=== PATIENT | male | born 1960 | race Caucasian/White ===

== ENCOUNTER → 2022-11-22 | Outpatient (CLI) | payer OTHER, SELFPAY ==
--- NOTE | 2022-11-22 07:47 | CT_ITS ---
PROCEDURE: CT RIGHT KNEE WITHOUT CONTRAST REASON FOR EXAM: Male, 62 years old. Preoperative planning for the M[employer] Robotic knee surgery. Knee pain. TECHNIQUE: Transaxial CT of the hip, knee and ankle were obtained. Coronal and sagittal reconstruction images of the knee were provided. Individualized dose optimization techniques were used for this CT. COMPARISON: None. FINDINGS: Standard protocol for the preoperative planning for the Mako[employer] robotic knee surgery was performed. There is mild osteoarthrosis of the hip, knee and tibiotalar joint. CT/Extremity Lower without Contra IMPRESSION: Preoperative M[employer] Robotic knee surgical CT evaluation with findings as described above. Electronically Signed: Van Lawson, at 10:40 EDT ,
== END | disposition home or self-care (01) ==
PROVIDERS: PCP Family Medicine; Referring Provider Specialist; Visit Provider Specialist
DX: M25.561 Pain in right knee (principal); M21.161 Varus deformity, not elsewhere classified, right knee
CPT/HCPCS: 73700

== ENCOUNTER → 2022-12-04 | Outpatient (CLI) | payer OTHER, SELFPAY ==
--- NOTE | 2022-12-04 06:47 | EKG12_ITS ---
Test Reason : PRE OP Blood Pressure : / mmHG Vent. Rate : 097 BPM Atrial Rate : 097 BPM P-R Int : 126 ms QRS Dur : 072 ms QT Int : 320 ms P-R-T Axes : 062 061 075 degrees QTc Int : 406 ms Normal sinus rhythm Normal ECG Confirmed by DARIANA HERNANDEZ, DARRIN ([id number]), photography editor BRIGITTE PAULSON ([id number]) on 12/05/2022 9:24:20 AM Referred By: Anatoly Pope Confirmed By:DARRIN WESTBROOK MD
== END | disposition home or self-care (01) ==
LOC: PSN 06:46
PROVIDERS: PCP Family Medicine; Referring Provider Specialist; Visit Provider Specialist
DX: Z01.818 Encounter for other preprocedural examination (principal); M17.11 Unilateral primary osteoarthritis, right knee; M21.161 Varus deformity, not elsewhere classified, right knee; M25.461 Effusion, right knee
CPT/HCPCS: 93005

== ENCOUNTER → 2022-12-05 | Outpatient (CLI) | payer OTHER, SELFPAY ==
[2022-12-05 17:05] LABS: Absolute Lymphocyte Count 2.35 X10^3/uL (0.83-4.51); Absolute Neutrophil Count 4.3 X10^3/uL (2.0-7.7); Basophil# 0.06 X10^3/uL; Basophil% 0.8 % (0-1); Eosinophil# 0.12 X10^3/uL; Eosinophils% 1.6 % (0-5); Hematocrit 43.5 % (40-54); Hemoglobin 14.9 g/dL (13.0-16.5); Lymphocyte # 2.35 X10^3/ul (0.83-4.51); Lymphocyte % 30.5 % (19-41); Mean Corp Hgb Conc 34.3 g/dL (32-36); Mean Corpuscular Hgb 29.8 pg (27.0-32.0); Monocyte# 0.82 X10^3/uL; Monocyte% 10.6 % (0-10); NRBC Flagged by Analyzer 0 % (0-5); Neutrophil # 4.33 X10^3/uL (2.7-7.7); Neutrophil % 56.1 % (47-70); Platelet Count 372 K/mm3 (150-450); RBC Distribution Width CV 12.3 % (11.6-14.6); RBC Distribution Width SD 39.3 fl (35.1-43.9); White Blood Count 7.7 K/mm3 (4.4-11.0)
[2022-12-05 18:09] LABS: Albumin, Serum 4.2 g/dL (3.2-5.0); Anion Gap 4 (5-15); BUN 12 mg/dL (7-18); BUN/Creat Ratio 13.1 RATIO (10-20); Calcium,Total 9.3 mg/dL (8.5-10.1); Chloride 102 mmol/L (98-107); Creatinine, Serum 0.92 mg/dL (0.70-1.30); EST Glomerular Filtration Rate 88 mL/min (>60); Est Glom Filt Rate - Afr Amer 107 mL/min (>60); Glucose 110 mg/dL (74-106); Potassium 3.5 mmol/L (3.5-5.1); Sodium Level 134 mmol/L (136-145)
== END | disposition home or self-care (01) ==
LOC: LAB 16:14
PROVIDERS: PCP Family Medicine; Referring Provider Physician Assistant Surgical; Visit Provider Physician Assistant Surgical
DX: Z01.818 Encounter for other preprocedural examination (principal)
CPT/HCPCS: 36415; 80048; 82040; 85025

== ENCOUNTER → 2023-01-31 | Outpatient (CLI) | payer OTHER, SELFPAY ==
--- NOTE | 2023-01-31 14:58 | VDLE_ITS ---
Reason For Study: RLE PAIN RIGHT LEFT GSV is normal. CFV is compressible, spontaneous, phasic, CFV is compressible, spontaneous, phasic, competent, and demonstrates normal competent and demonstrates normal augmentation. augmentation. FV is compressible, spontaneous, phasic, competent and demonstrates normal augmentation. POP V is compressible, spontaneous, phasic, competent and demonstrates normal augmentation. T/P Trunk is compressible. PTV is compressible. RT PerV is compressible. Procedure This is a venous duplex using B-mode, color flow and spectral Doppler. Exam performed in department. A preliminary report was called and/or faxed to [facility] @ [phone]@3:20PM. VL/Venous Duplex US, Unilateral Interpretation Summary Deep veins of the right lower extremity are patent and compressible segmentally . There is no evidence of right lower extremity deep vein thrombosis. The right great sapheno us vein appears patent and compressible segmentally. Ordering Physician: Anatoly Pope Referring Physician: Marcell Oneil Performed By: Adrianna Chu, ENRIQUECS, RVT
== END | disposition home or self-care (01) ==
PROVIDERS: PCP Family Medicine; Referring Provider Specialist; Visit Provider Specialist
DX: M79.661 Pain in right lower leg (principal)
CPT/HCPCS: 93971

== ENCOUNTER 2024-05-04 03:40 | Emergency (ER) | payer MEDICARE, SELFPAY ==
[2024-05-04 03:42] VITALS: BP 163/90; PULSE 82; RESP 12; TEMP 36.4; O2SAT 98; BMI 32.5
[2024-05-04 03:45] VITALS: BP 141/84; PULSE 83; RESP 12; TEMP 36.4; O2SAT 98
--- NOTE | 2024-05-04 04:01 | EKG12_ITS ---
Test Reason : CP Blood Pressure : / mmHG Vent. Rate : 076 BPM Atrial Rate : 076 BPM P-R Int : 134 ms QRS Dur : 078 ms QT Int : 378 ms P-R-T Axes : 051 041 063 degrees QTc Int : 425 ms Normal sinus rhythm Normal ECG Confirmed by Doyle Dukes ([id number]), editorial cartoonist BRIGITTE PAULSON ([id number]) on 05/05/2024 10:24:08 AM Referred By: ANITHA Confirmed By:Doyle Dukes
--- NOTE | 2024-05-04 04:01 | RAD_ITS ---
EXAM: XR CHEST, 1 VIEW CLINICAL INDICATION: CHEST PAIN TECHNIQUE: 2 frontal views of the chest. COMPARISON: No relevant prior studies available. FINDINGS: LUNGS AND PLEURAL SPACES: Minimal discoid atelectasis or scarring in the left lower lung.. No consolidation or edema. No pneumothorax. No effusion. HEART: Unremarkable. Cardiac silhouette not enlarged. Normal pulmonary vasculature. MEDIASTINUM: Central airways and mediastinal contour are unremarkable. No mediastinal widening or tracheal displacement. BONES/JOINTS: Thoracic degenerative spurring. No acute fracture. SOFT TISSUES: Unremarkable. RAD/Chest 1 View (Portable) IMPRESSION: No radiographic evidence of acute cardiopulmonary disease. Electronically Signed: Giovanni Xiao MD at 5:30 EDT ,
--- NOTE | 2024-05-04 04:02 | EDS_ITS ---
HPI History of Present Illness Chief Complaint: Chest Pain Narrative Narrative: Chief complaint and HPI: 63-year-old male with history of HTN, HLD presents for evaluation of midsternal chest pain. Patient states that this morning he woke up with midsternal chest pain around 1 AM. He describes it as achy. He states he took Motrin and went back to sleep. He states that the chest pain recurred again around 3 AM which is what brought him in for further evaluation. Chest pain has since resolved. Chest pain did not radiate towards the back, down the arm, or into the jaw. He denies any lightheadedness, syncope, diaphoresis Review of systems: See HPI Medications: As listed on the chart Allergies: As listed on the chart PFSH: Per chart Vital signs: As listed on the chart. Reviewed. Physical exam: Gen: A&O x3, NAD Head: Normocephalic, atraumatic Eyes: No sclera icterus, conjunctiva clear ENT: Moist mucous membranes Neck: Trachea midline, No JVD CV: RRR, no murmurs, no peripheral edema Resp: Lungs CTA BL, no w/r/c GI: Abd soft, non-distended, non-tender, no r/r/g Musc: Full ROM, no deformity Skin: Warm, dry Neuro: Alert, oriented, grossly intact, sensation intact Psych: Cooperative, appropriate mood and affect [facility] Medical History no medical history Home Medications ?Medication ?Instructions ?Recorded ?Last Taken ?Type amlodipine 5 mg tablet 5 mg PO DAILY 07/07/15 Unknown History aspirin 81 mg capsule 81 mg PO DAILY 05/04/24 Unknown History clotrimazole-betamethasone 1 1 applic topical BID 05/04/24 Unknown History %-0.05 % topical cream lisinopril 10 1 tab PO DAILY 05/04/24 Unknown History mg-hydrochlorothiazide 12.5 mg tablet omeprazole 20 mg capsule,delayed 20 mg PO DAILY 05/04/24 Unknown History release simvastatin 40 mg tablet 40 mg PO QHS 05/04/24 Unknown History tramadol 50 mg tablet 50 mg PO TID PRN PRN pain 05/04/24 Unknown History Allergy/AdvReac Type Severity Reaction Status Date / Time shellfish derived Allergy Mild Upset Verified 05/04/24 03:42 Stomach iodine Allergy Other Verified 05/04/24 03:42 Family History no significant family his Surgical History (Updated 05/04/24 @ 03:47 by Andrea Bar) History of total right knee replacement Social History Smoking Status: Never smoker EXAM Physical Exam Const Vital Signs: 05/04/24 03:42 05/04/24 03:45 05/04/24 03:45 Temperature 97.5 F L 97.5 F L Temperature Source Oral Oral Pulse Rate 82 83 Respiratory Rate 12 12 Respiratory Effort Normal Blood Pressure 163/90 H 141/84 H Blood Pressure Mean 114 103 Pulse Ox 98 98 Oxygen Delivery Method Room Air Room Air Discharge Plan Triage Chief Complaint: Chest Pain ED Provider: Raul Riggins Dx/Rx/DC Orders Clinical Impression: Chest pain Instructions: Chest Pain [facility] Prescriptions: No Action amlodipine 5 MG tablet 5 mg PO DAILY tramadol 50 mg tablet 50 mg PO TID PRN PRN (Reason: pain) simvastatin 40 mg tablet 40 mg PO QHS clotrimazole-betamethasone 1-0.05 % cream 1 applic topical BID omeprazole 20 mg capsule,delayed release(DR/EC) 20 mg PO DAILY lisinopril-hydrochlorothiazide 10-12.5 mg tablet 1 tab PO DAILY aspirin 81 mg capsule 81 mg PO DAILY Primary Care Provider: Marcell Juan Referrals: Marcell Juan MD [Primary Care Provider] - 3-5 Days Activity Restrictions/Additional Instructions: Return back to the ED if symptoms change or worsen Print Language: Kittitian Disposition Disposition: Home, Self Care
[2024-05-04 04:11] LABS: Absolute Lymphocyte Count 2.13 X10^3/uL (0.83-4.51); Absolute Neutrophil Count 3.8 X10^3/uL (2.0-7.7); Basophil# 0.07 X10^3/uL; Eosinophil# 0.17 X10^3/uL; Eosinophils% 2.3 % (0-5); Hematocrit 44.3 % (40-54); Lymphocyte # 2.13 X10^3/ul (0.83-4.51); Lymphocyte % 29.2 % (19-41); Mean Corp Hgb Conc 33.9 g/dL (32-36); Mean Corpuscular Hgb 29.4 pg (27.0-32.0); Mean Corpuscular Volume 86.9 fL (80-94); Mean Platelet Vol. 10.5 fl (6.2-12.0); Monocyte# 1.12 X10^3/uL; Monocyte% 15.4 % (0-10); NRBC Flagged by Analyzer 0 % (0-5); Neutrophil # 3.76 X10^3/uL (2.7-7.7); Neutrophil % 51.6 % (47-70); Platelet Count 325 K/mm3 (150-450); RBC Distribution Width CV 12.4 % (11.6-14.6); White Blood Count 7.3 K/mm3 (4.4-11.0)
[2024-05-04 04:31] LABS: Anion Gap 6 (5-15); BUN 14 mg/dL (7-18); BUN/Creat Ratio 13.2 RATIO (10-20); Calcium,Total 9.2 mg/dL (8.5-10.1); Chloride 102 mmol/L (98-107); Creatinine, Serum 1.06 mg/dL (0.70-1.30); EST Glomerular Filtration Rate 74 mL/min (>60); Est Glom Filt Rate - Afr Amer 90 mL/min (>60); Estimated Creatinine Clearance 68.71 ml/min; Glucose 188 mg/dL (74-106); Potassium 3.7 mmol/L (3.5-5.1); Sodium Level 135 mmol/L (136-145); Troponin-I HS (w/2H Reflex) 6 pg/mL (3.0-78.0)
[2024-05-04 04:38] LABS: BNP,B-Type NATRIURETIC PEPTIDE 16.1 pg/mL (0-100)
[2024-05-04 04:41] VITALS: BP 135/88; PULSE 72; RESP 12; O2SAT 94
[2024-05-04 05:00] VITALS: BP 127/115; PULSE 79; RESP 18; O2SAT 95
[2024-05-04 06:07] LABS: Reflex Troponin-HS? (from REC) Y
[2024-05-04 06:48] LABS: Troponin-I HS 6 pg/mL (3.0-78.0)
[2024-05-04 07:00] VITALS: BP 133/89; PULSE 77; RESP 18
== END 2024-05-04 07:50 | disposition home or self-care (01) ==
PROVIDERS: Emergency Provider Surgery; PCP Family Medicine; Visit Provider Surgery
DX: R07.9 Chest pain, unspecified (principal); I10 Essential (primary) hypertension; E78.5 Hyperlipidemia, unspecified; Z79.82 Long term (current) use of aspirin; Z79.899 Other long term (current) drug therapy
CPT/HCPCS: 36415; 71045; 80048; 83880; 84484; 85025; 93005; 99284; A4216

== ENCOUNTER 2024-07-13 21:37 | Inpatient (IN) | payer MEDICARE, SELFPAY ==
[2024-07-13] VITALS (12 sets, daily range): BP systolic 96–113; BP diastolic 63–85; PULSE 60–71; RESP 17–27; TEMP 36.5; O2SAT 95–99; BMI 32.7
--- NOTE | 2024-07-13 21:53 | CT_ITS ---
ACR Level 3 findings have been noted. An addendum which confirms receipt of the report will follow. EXAM: CT ABDOMEN AND PELVIS WITHOUT INTRAVENOUS CONTRAST CLINICAL INDICATION: Surgical abdomen, acute abdominal pain, concern pe TECHNIQUE: Helically acquired images were obtained of the abdomen and pelvis without intravenous contrast. This CT exam was performed using one or more of the following dose reduction techniques: automated exposure control, adjustment of the mA and/or kV according to patient size, and/or use of iterative reconstruction technique. COMPARISON: No relevant prior studies available. FINDINGS: LOWER THORAX: Coronary artery calcifications. Minimal dependent atelectasis bilaterally. Lung bases are clear. No cardiomegaly. No significant pericardial effusion. ABDOMEN: LIVER: No significant abnormality. Homogeneous. GALLBLADDER AND BILE DUCTS: No significant abnormality. No calcified gallstones. No gallbladder distention or wall edema. No intra- or extrahepatic biliary ductal dilation. PANCREAS: Extensive peripancreatic edema. No definite focal pancreatic lesion identified on this noncontrast examination. No focal cystic mass. SPLEEN: No significant abnormality. Normal size without focal cystic or solid mass. ADRENALS: No significant abnormality. No nodules. KIDNEYS AND URETERS: No significant abnormality. Normal renal size and position. No hydronephrosis. STOMACH AND BOWEL: Colonic diverticulosis without evidence of acute diverticulitis. No stomach or bowel distention. PELVIS: APPENDIX: Normal appendix identified in the right lower quadrant. BLADDER: No significant abnormality. REPRODUCTIVE: Normal as visualized. No mass. ABDOMEN and PELVIS: INTRAPERITONEAL SPACE: There is no evidence of intraperitoneal abscess, free air, or free fluid. BONES/JOINTS: No significant abnormality. No suspicious lytic or blastic abnormality. SOFT TISSUES: No significant abnormality. No discrete abdominal or pelvic wall hernia. VASCULATURE: Atherosclerosis. LYMPH NODES: No significant abnormality. No enlarged lymph nodes. CT/Abdomen/Pelvis without Cont IMPRESSION: 1. Findings most consistent with acute pancreatitis. Follow-up as clinically necessary. 2. Colonic diverticulosis without evidence of acute diverticulitis. Electronically Signed: Martín Arriaga DO at 22:32 EST ,
--- NOTE | 2024-07-13 21:53 | EKG12_ITS ---
Test Reason : CHEST PAIN Blood Pressure : */* mmHG Vent. Rate : 64 BPM Atrial Rate : 64 BPM P-R Int : 130 ms QRS Dur : 84 ms QT Int : 434 ms P-R-T Axes : 63 63 61 degrees QTcB Int : 447 ms Normal sinus rhythm Normal ECG Confirmed by Doyle Dukes ([id number]), make up editor ROZ KEENE ([id number]) on 07/15/2024 11:03:52 AM Referred By: Confirmed By: Doyle Dukes
[2024-07-13] MEDS: 0.9% Normal Saline (1000mL) 1,000 ML 1000 ML IV ×2 (21:57→23:14)
[2024-07-13] MEDS: Ondansetron 4 MG/2 ML Vial IV (21:58)
[2024-07-13] MEDS: Morphine 4 MG/ML Syringe IV ×2 (21:58→22:30)
--- NOTE | 2024-07-13 22:01 | EX.ED.DYSGE1 ---
HPI History of Present Illness Chief Complaint: Abd Pain Detail of Chief Complaint: Acute onset of epigastric pain 2 hours prior to arrival Informant: patient and family Onset/Context/Timing Onset: Hours Context: Sudden Onset Timing: Continuous Quality: Pain Location: Epigastric Current Severity: Severe Worsened by: Movement Relieved by: Nothing Associated Symptoms Associated Symptoms: Nausea and hurts to breathe Narrative Narrative: Patient is a 64-year-old male who drinks 1-2 beers per day. He denies history of pancreatitis. Does have history of hypertension, hypercholesterolemia. He is on a baby aspirin a day. He has been recently taking NSAIDs. He is also on gabapentin for chronic pain. Patient denies fever, chills night sweats. Patient denies headache, visual, ocular auditory symptoms. Patient denies chest pain. He denies pain in his back, shoulders or upper extremities. Patient denies history of intolerance to greasy or fried foods. Denies history of biliary disease. He denies history of peptic ulcer disease, GERD, hiatal hernia or esophagitis. Patient denies black or maroon-colored stool. Patient reports intermittent chronic diarrhea. Patient denies urologic symptoms. Nurse informing that patient's blood pressure initially was 80 in the field. He has received 500 cc prior to arrival. Prior similar symptoms: No Recent Illness/Hospitalization: No PFSH PFS Medical History Epigastric pain Home Medications ?Medication ?Instructions ?Recorded ?Last Taken ?Type amlodipine 5 mg tablet 5 mg PO DAILY 07/07/15 Unknown History aspirin 81 mg capsule 81 mg PO DAILY 05/04/24 Unknown History lisinopril 10 1 tab PO DAILY 05/04/24 Unknown History mg-hydrochlorothiazide 12.5 mg tablet omeprazole 20 mg capsule,delayed 20 mg PO DAILY 05/04/24 Unknown History release simvastatin 40 mg tablet 40 mg PO QHS 05/04/24 Unknown History tramadol 50 mg tablet 50 mg PO TID PRN PRN pain 05/04/24 Unknown History gabapentin 100 mg capsule 100 mg PO TID 07/13/24 Unknown History Allergy/AdvReac Type Severity Reaction Status Date / Time shellfish derived Allergy Mild Upset Verified 07/13/24 21:38 Stomach iodine Allergy Other Verified 07/13/24 21:38 Surgical History History of total right knee replacement Social History (Updated 07/13/24 @ 22:[address] Ton Jon MD) Smoking Status: Never smoker alcohol intake: current alcohol intake frequency: 0-2 drinks per day ROS ROS ED Constitutional Constitutional ED: Denies chills, fever(s), subjective or sweats Eyes Eyes: Denies blurry vision or change in vision ENT ENT ED: Denies ear pain, rhinorrhea or sore throat Cardiovascular Cardiovascular: Denies chest pain, orthopnea, palpitations, paroxysmal nocturnal dyspnea or racing heartbeat Respiratory/Chest Respiratory/Chest: Denies cough, dyspnea, dyspnea on exertion, orthopnea or paroxysmal nocturnal dyspnea Gastrointestinal Gastrointestinal: Reports abdominal pain and nausea; Denies constipation, diarrhea, melena or vomiting Genitourinary Genitourinary ED: Denies dysuria, hematuria or urinary frequency Musculoskeletal Musculoskeletal: Denies arthralgias, back pain or myalgias Integumentary Denies abscess, Abrasions or rash Neurologic Neurologic: Denies headache(s) or paresthesias Psychiatric Psychiatric: Denies anxiety or depression Endocrine Endocrinology: Denies cold intolerance or heat intolerance Hematologic/Lymphatic Hematologic/Lymphatic: Reports systems reviewed and no addt'l complaints, except as documented EXAM Physical Exam Const Vital Signs: 07/13/24 21:39 07/13/24 21:45 07/13/24 21:47 Temperature 97.7 F L Temperature Source Oral Pulse Rate 66 66 66 Respiratory Rate 18 18 17 Blood Pressure 112/85 H Blood Pressure Mean 94 Pulse Ox 96 95 98 Oxygen Delivery Method Room Air Room Air 07/13/24 21:50 07/13/24 21:59 07/13/24 22:00 Temperature Temperature Source Pulse Rate 66 71 67 Respiratory Rate 19 H 22 H 20 H Blood Pressure 106/68 106/68 Blood Pressure Mean 80 80 Pulse Ox 96 97 96 Oxygen Delivery Method Room Air 07/13/24 22:15 07/13/24 22:25 07/13/24 22:30 Temperature Temperature Source Pulse Rate 70 68 Respiratory Rate 18 27 H Blood Pressure 112/72 113/72 Blood Pressure Mean 81 83 Pulse Ox 98 99 Oxygen Delivery Method 07/13/24 22:45 07/13/24 23:00 07/13/24 23:00 Temperature 97.7 F L Temperature Source Oral Pulse Rate 67 61 60 Respiratory Rate 27 H 24 H 20 H Blood Pressure 96/63 99/65 99/65 Blood Pressure Mean 72 76 75 Pulse Ox 98 97 97 Oxygen Delivery Method Room Air Positive well nourished Constitutional Narrative: Patient is in obvious discomfort. His abdomen appears distended and is firm. HEENT Reports dry mucous membranes HEENT Narrative: Head is atraumatic normocephalic. Ears normal. Nares patent Mouth ED: Yes dry mucous membranes Mouth: dry mucous membranes Eyes PERRL and EOMs intact bilaterally General Eye ED: Negative for pale conjunctiva or scleral icterus Neck no lymphadenopathy, supple and no JVD Chest Wall inspection of chest normal and palpation of chest normal Resp normal respiratory effort and clear to auscultation bilaterally Cardio regular rate, regular rhythm, S1 normal heart sound, S2 normal heart sound and no murmurs GI GI Narrative: Abdomen is firm. He has delayed capillary refill with palpation of the abdomen. He has peritoneal findings. He is slightly tympanitic to percussion. Unable to appreciate a Passman megaly because of the firmness of his of his abdomen. There is no evidence of ventral or umbilical hernia. There is no inguinal masses noted. Bowel sounds are diminished. Back/Spine no CVA tenderness Extremity normal to inspection General Extremety ED: Negative for edema or tenderness General Extremity: Negative for edema Neuro CN's II-XII intact bilaterally Sensorium / Orientation: alert Psych mental status grossly normal Skin Skin Narrative: Poor perfusion. There is no acrocyanosis or clubbing. Sepsis Attestation Sepsis Alert: Yes Sepsis Attestation: Sepsis Ruled Out Date exam was performed: 07/13/24 Time exam was performed: 23:11 MDM MDM MDM Narrative Medical decision making narrative: With abrupt onset epigastric pain concern for perforated viscus i.e. gastric or duodenal ulcer, also need to consider pancreatitis since he has a history of chronic alcohol use. Other etiology would be atypical presentation for cardiac, perforated diverticulosis. IV was established. IV was administered wide open. Initially CT of the abdomen pelvis with IV contrast was ordered. However patient has anaphylactic reaction. Therefore will order without contrast. EKG was obtained to rule out acute cardiac ischemia. Appropriate blood work was ordered to assess white count, H&H, electrolyte function, renal function. Patient was medicated with Zofran for his nausea and morphine for his pain. At 2311 nurse informing the patient pressures less than 100. I disagree with sepsis. Patient has acute pancreatitis. Additional liter of normal saline was ordered. Lab Data Attestation: I reviewed the patient's lab results. Lab results narrative: White count is normal. H&H is normal. Differential is normal. Labs: Laboratory Results - last 24 hr 07/13/24 21:58 WBC 9.6 RBC 5.15 Hgb 15.1 Hct 44.0 MCV 85.4 MCH 29.3 MCHC 34.3 RDW Std Deviation 38.5 RDW Coeff of Vic 12.3 Plt Count 427 MPV 9.8 Immature Gran % (Auto) 0.700 Neut % (Auto) 54.7 Lymph % (Auto) 33.4 White % (Auto) 8.6 Eos % (Auto) 2.1 Baso % (Auto) 0.5 Absolute Neuts (auto) 5.3 Absolute Lymphs (auto) 3.20 Nucleated RBC % 0 PT 13.0 INR 1.0 APTT 22.3 L Sodium 139 Potassium 3.0 L Chloride 102 Carbon Dioxide 28.0 Anion Gap 9 BUN 11 Creatinine 1.20 Estim Creat Clear Calc 60.02 Est GFR (MDRD) Af Amer 78 Est GFR (MDRD) Non-Af 64 BUN/Creatinine Ratio 9.2 L Glucose 196 H Lactic Acid 4.3 H* Calcium 9.2 Total Bilirubin 0.80 AST 186 H ALT 82 H Alkaline Phosphatase 90 Total Protein 7.1 Albumin 4.0 Globulin 3.1 Albumin/Globulin Ratio 1.3 Lipase > 5000 H Lipase is greater than 5000. Liver enzymes reveal elevated AST and ALT of 186 and 82 respectively. Glucose is elevated 196. CO2 anion gap are normal. Lactate elevated 4.3. Radiography Diagnostic Testing: Clinical Impression(s) from Imaging Studies Abdomen/Pelvis CT 07/13/24 21:53 IMPRESSION: 1. Findings most consistent with acute pancreatitis. Follow-up as clinically necessary. 2. Colonic diverticulosis without evidence of acute diverticulitis. Electronically Signed: Martín Arriaga DO at 22:32 EST , ADDENDUM: 07/13/24 [id number] IMPRESSION: 1. Findings most consistent with acute pancreatitis. Follow-up as clinically necessary. 2. Colonic diverticulosis without evidence of acute diverticulitis. N.B. : Ton Jon MD, confirmed on 07/13/2024 22:41:33 (ET) that the healthcare facility has received the radiology report. Electronically Signed: Martín Arriaga, DO at 22:32 EST , CT of the abdomen pelvis without contrast reveals no evidence of pneumoperitoneum or lower lobe pneumonia. The liver and spleen appear normal. The kidneys appear normal. The pancreas looks inflamed. Awaiting formal read by radiologist, 2218. EKG Initial EKG: Attestation: I personally reviewed and interpreted this EKG as follows: Interpretation: Sinus Rhythm (Rate is 64 and normal. There is artifact due to his breathing. AK interval is 130 ms. QS duration 84 ms. QT duration 434 ms. Reading is normal. Multiple attempts were made because of artifact due to breathing.) Management Discussion w/another healthcare provider: Hospitalist (Hospitalist was paged for admission. With patient having elevated lactate we will discuss placement regarding MedSurg versus PCU. Since patient is hypotensive again plan is ICU.) Treatment and Re-Evaluation :: Nurse informing patient still having significant pain. Additional 4 mg of morphine was ordered, 20-26 Critical Care Time Critical Care Time: Yes Critical care time (excluding procedures): 30-74 minutes (33), Including time spent: (History, physical, documentation, review of prior records), Discussing w/Patient &/or Family/Cash Applications Representative (Informed patient and son results, cause of his pancreatitis), Discussing w/Consultants and Arranging Admission or Transfer Discharge Plan Dx/Rx/DC Orders Clinical Impression: Acute alcoholic pancreatitis, Acidosis, lactic, Nondiabetic hyperglycemia, Family history of hypertension, Hx of hypercholesterolemia, Diverticulosis, Alcohol use, Acute hypotension Disposition Disposition: [facility]
[2024-07-13 22:09] LABS: Absolute Neutrophil Count 5.3 X10^3/uL (2.0-7.7); Basophil# 0.05 X10^3/uL; Basophil% 0.5 % (0-1); Eosinophils% 2.1 % (0-5); Hemoglobin 15.1 g/dL (13.0-16.5); Lymphocyte % 33.4 % (19-41); Mean Corp Hgb Conc 34.3 g/dL (32-36); Mean Corpuscular Hgb 29.3 pg (27.0-32.0); Mean Corpuscular Volume 85.4 fL (80-94); Mean Platelet Vol. 9.8 fl (6.2-12.0); Monocyte# 0.82 X10^3/uL; Monocyte% 8.6 % (0-10); NRBC Flagged by Analyzer 0 % (0-5); Neutrophil # 5.25 X10^3/uL (2.7-7.7); Neutrophil % 54.7 % (47-70); Platelet Count 427 K/mm3 (150-450); RBC Distribution Width CV 12.3 % (11.6-14.6); RBC Distribution Width SD 38.5 fl (35.1-43.9); Red Blood Count 5.15 M/mm3 (4.6-6.2); White Blood Count 9.6 K/mm3 (4.4-11.0)
[2024-07-13 22:22] LABS: Partial Thromboplast Time 22.3 Seconds (24.1-36.2)
[2024-07-13 22:34] LABS: ALB/GLOB Ratio 1.3 RATIO (0.9-2.4); AST(SGOT) 186 U/L (15-37); Alanine Aminotransfer ALT/SGPT 82 U/L (16-61); Alkaline Phosphatase 90 U/L (45-117); Anion Gap 9 (5-15); BUN 11 mg/dL (7-18); BUN/Creat Ratio 9.2 RATIO (10-20); Calcium,Total 9.2 mg/dL (8.5-10.1); Chloride 102 mmol/L (98-107); EST Glomerular Filtration Rate 64 mL/min (>60); Est Glom Filt Rate - Afr Amer 78 mL/min (>60); Estimated Creatinine Clearance 60.02 ml/min; Globulin 3.1 g/dL (2.2-4.2); Glucose 196 mg/dL (74-106); Lipase > 5000 U/L (13-75); Protein, Total 7.1 g/dL (6.4-8.2); Sodium Level 139 mmol/L (136-145)
[2024-07-13 22:36] LABS: Lactic Acid 4.3 mmol/L (0.4-1.9)
--- NOTE | 2024-07-13 23:23 | PCM.HP.STD ---
[facility] - General General Date of Admission: 07/13/24 Date of Service: 07/13/24 Chief Complaint: Abdominal Pain and Nausea. HPI Narrative JAMES DUARTE, is a 64 M with a past medical history of essential hypertension; on amlodipine and lisinopril-HCTZ, hyperlipidemia; on simvastatin, obesity; with BMI of 32.7 this admission, neuropathy; on gabapentin, history of diverticulosis, GERD; on omeprazole, OA; with history of Right TKR on prn tramadol and Chronic EtOH Abuse; with patient admitting to drinking ~2 beers daily but he denies a history of pancreatitis or EtOH withdrawal who presents to [facility] ER complaining of abdominal pain and nausea. Mr. Duarte reports his symptoms began approximately 2 hours prior to arrival with the abrupt-onset of severe abdominal pain located primarily in his epigastrium. He states the pain is not made better by anything but it is made worse with movement. He also admits to nausea and he states it hurts to breathe. He denies associated fever, chills, vomiting, blood in stools, chest pain, shortness of breath or intolerance to greasy or fried foods but he does admit to chronic intermittent diarrhea. In the ER he was noted to have a severely elevated serum lipase greater than 5,000 U/L along with confirmatory CT evidence of Acute Pancreatitis with AST 186 U/L and ALT 82 U/L with alkaline phosphatase 90 U/L plus hypokalemia of 3 mmol/L and Lactic Acidosis of 4.3 mmol/L present on admission complicated by severe hypotension in the 90/60 mmHg range with patient emergently treated with 2 L bolus of normal saline. He was then admitted to the ICU for ongoing care for stay that is expected to extend beyond 2 midnights. [facility] Medical History Epigastric pain Home Medications ?Medication ?Instructions ?Recorded ?Last Taken ?Type amlodipine 5 mg tablet 5 mg PO DAILY 07/07/15 Unknown History aspirin 81 mg capsule 81 mg PO DAILY 05/04/24 Unknown History lisinopril 10 1 tab PO DAILY 05/04/24 Unknown History mg-hydrochlorothiazide 12.5 mg tablet omeprazole 20 mg capsule,delayed 20 mg PO DAILY 05/04/24 Unknown History release simvastatin 40 mg tablet 40 mg PO QHS 05/04/24 Unknown History tramadol 50 mg tablet 50 mg PO TID PRN PRN pain 05/04/24 Unknown History gabapentin 100 mg capsule 100 mg PO TID 07/13/24 Unknown History Allergy/AdvReac Type Severity Reaction Status Date / Time shellfish derived Allergy Mild Upset Verified 07/13/24 21:38 Stomach iodine Allergy Other Verified 07/13/24 21:38 Surgical History History of total right knee replacement Social History Smoking Status: Never smoker alcohol intake: current alcohol intake frequency: 0-2 drinks per day ROS ROS Narrative Review of Systems: Constitutional: Patient denies fever or chills. Eyes: Patient denies changes in vision or discharge from eyes. ENT: Patient denies runny nose, sore throat or ear pain. Resp: Patient denies shortness of breath or cough. CV: Patient denies chest pain, palpitations or heart racing. GI: Patient admits to severe epigastric abdominal pain with nausea as per HPI. He denies constipation, diarrhea, melena or vomiting. : Patient denies dysuria, hematuria or urinary frequency. MSK: Patient denies arthralgias or myalgias. Skin: Patient denies rash, abscess or jaundice. Psych: Patient denies symptoms of uncontrolled depression or anxiety. Neuro: Patient denies headache, paresthesias or focal neurologic deficits. Allergy: Patient denies lip swelling, tongue swelling or urticaria. Hematology: Patient denies easy bleeding or easy bruisability. Endocrinology: Patient denies polyuria, polydipsia or polyphagia. 14 point review of systems otherwise negative except for positives noted above in HPI. Vital Signs Vital Signs Vital Signs: 07/13/24 21:39 07/13/24 21:45 07/13/24 21:47 Temperature 97.7 F L Temperature Source Oral Pulse Rate 66 66 66 Respiratory Rate 18 18 17 Blood Pressure 112/85 H Blood Pressure Mean 94 Pulse Ox 96 95 98 Oxygen Delivery Method Room Air Room Air 07/13/24 21:50 07/13/24 21:59 07/13/24 22:00 Temperature Temperature Source Pulse Rate 66 71 67 Respiratory Rate 19 H 22 H 20 H Blood Pressure 106/68 106/68 Blood Pressure Mean 80 80 Pulse Ox 96 97 96 Oxygen Delivery Method Room Air 07/13/24 22:15 07/13/24 22:25 07/13/24 22:30 Temperature Temperature Source Pulse Rate 70 68 Respiratory Rate 18 27 H Blood Pressure 112/72 113/72 Blood Pressure Mean 81 83 Pulse Ox 98 99 Oxygen Delivery Method 07/13/24 22:45 07/13/24 23:00 07/13/24 23:00 Temperature 97.7 F L Temperature Source Oral Pulse Rate 67 61 60 Respiratory Rate 27 H 24 H 20 H Blood Pressure 96/63 99/65 99/65 Blood Pressure Mean 72 76 75 Pulse Ox 98 97 97 Oxygen Delivery Method Room Air Weight Weight: 190 lb 7.67 oz Body Mass Index (BMI) 32.7 Physical Exam Const alert and oriented x3 Constitutional Narrative: Moderate distress noted General Appearance: cooperative HEENT normocephalic, head/scalp atraumatic and hearing grossly normal bilaterally HEENT Narrative: Mucous membranes dry. Eyes PERRL and EOMs intact bilaterally Neck no lymphadenopathy and supple Resp normal respiratory effort, no retractions, no use of accessory muscles and clear to auscultation bilaterally Cardio regular rate and regular rhythm GI GI Narrative: Abdomen is distended and firm and slightly tympanitic to percussion with diminished bowel sounds throughout. Auscultation: hypoactive bowel sounds Extremity normal to inspection, full ROM and no clubbing, cyanosis or edema Skin Skin Narrative: Patient has no evidence of rash, abscess or jaundice. Neuro oriented x3, CN's II-XII intact bilaterally, moves all extremities and no focal motor deficits Sensorium / Orientation: awake, alert, oriented to person, oriented to place and oriented to time Speech: speech normal Psych affect normal Results Medical Records Data Attestation: I reviewed the patient's medical records Lab / Micro Data Attestation: I reviewed the patient's lab results. 07/13/24 21:58 07/13/24 21:58 Labs: Laboratory Results - last 24 hr 07/13/24 21:58: WBC 9.6, RBC 5.15, Hgb 15.1, Hct 44.0, MCV 85.4, MCH 29.3, MCHC 34.3, RDW Std Deviation 38.5, RDW Coeff of Vic 12.3, Plt Count 427, MPV 9.8, Immature Gran % (Auto) 0.700, Neut % (Auto) 54.7, Lymph % (Auto) 33.4, [place] % (Auto) 8.6, Eos % (Auto) 2.1, Baso % (Auto) 0.5, Absolute Neuts (auto) 5.3, Absolute Lymphs (auto) 3.20, Nucleated RBC % 0, PT 13.0, INR 1.0, APTT 22.3 L, Sodium 139, Potassium 3.0 L, Chloride 102, Carbon Dioxide 28.0, Anion Gap 9, BUN 11, Creatinine 1.20, Estim Creat Clear Calc 60.02, Est GFR (MDRD) Af Amer 78, Est GFR (MDRD) Non-Af 64, BUN/Creatinine Ratio 9.2 L, Glucose 196 H, Lactic Acid 4.3 H*, Calcium 9.2, Total Bilirubin 0.80, AST 186 H, ALT 82 H, Alkaline Phosphatase 90, Total Protein 7.1, Albumin 4.0, Globulin 3.1, Albumin/Globulin Ratio 1.3, Lipase > 5000 H Imaging Radiology Impression Abdomen/Pelvis CT 07/13/24 21:53 IMPRESSION: 1. Findings most consistent with acute pancreatitis. Follow-up as clinically necessary. 2. Colonic diverticulosis without evidence of acute diverticulitis. Electronically Signed: Martín Arriaga DO at 22:32 EST Reading Location ID and State: [facility] / [place] Tel , Service support , ADDENDUM: 07/13/24 [id number] IMPRESSION: 1. Findings most consistent with acute pancreatitis. Follow-up as clinically necessary. 2. Colonic diverticulosis without evidence of acute diverticulitis. N.B. : Ton Jon MD, confirmed on 07/13/2024 22:41:33 (ET) that the healthcare facility has received the radiology report. Electronically Signed: Martín Arriaga DO at 22:32 EST , Assessment & Plan Assessment/Plan (1) Acute alcoholic pancreatitis: QUALIFIERS: Acute pancreatitis complication: no infection or necrosis Qualified Code(s): K85.20 - Alcohol induced acute pancreatitis without necrosis or infection (2) Acidosis, lactic: (3) Severe hypotension: (4) Chronic alcohol abuse: (5) Hypokalemia: (6) Obesity (BMI 30.0-34.9): PLAN: Plan 1. Severely elevated serum lipase greater than 5,000 U/L along with confirmatory CT evidence of Acute Pancreatitis likely due to Chronic EtOH Abuse with AST 186 U/L and ALT 82 U/L with alkaline phosphatase 90 U/L - Admit to ICU. Keep strict NPO. Give Protonix 40 mg IV daily. Start Phenobarbital IV to prevent EtOH withdrawal. EtOH Cessation will be strongly encouraged. Recheck CMP daily to follow trend. 2. Severe hypotension in the 90/60 mmHg range with Lactic Acidosis of 4.3 mmol/L present on admission complicating #1 - Continue to bolus IVF's to keep MAP > 65 mmHg. Serialize lactate. 3. Hypokalemia of 3 mmol/L present on admission compounding #1 & #2 - Give supplemental IV KCl and then recheck level in the AM to ensure repletion. 4. Obesity; with BMI of 32.7 this admission - Weight loss will be recommended. Check TSH. This complicates his case and may hamper recovery. 5. Essential hypertension; on amlodipine and lisinopril-HCTZ - Hold scheduled antihypertensives in light of #2. 6. Hyperlipidemia; on simvastatin - Restart simvastatin when patient is able to tolerate oral intake. Check Lipid Profile in light of #1. 7. Neuropathy; on gabapentin - Resume gabapentin when patient is cleared for oral intake. 8. History of diverticulosis - Noted on CT this admission with no signs of diverticulitis. 9. GERD; on omeprazole - Patient will be started on IV Protonix for #1. 10. OA; with history of Right TKR on prn tramadol - Noted. Hold tramadol for now. 11. DVT prophylaxis - Lovenox 40 mg sq daily plus SCD's. Total time: Approximately (but not less than) 75 minutes. Charges/Coding Visit Charges Inpatient E&M: 60642 Init Hosp L3
[2024-07-13] MEDS: HYDROmorphone 0.5 MG/0.5 ML SYRINGE IV (23:54)
[2024-07-14] VITALS (19 sets, daily range): BP systolic 128–146; BP diastolic 86–101; PULSE 72–133; RESP 17–32; TEMP 35.8–36.9; O2SAT 90–98; BMI 31.0
[2024-07-14 00:17] LABS: Cholesterol 223 mg/dL (200); High Density Lipoprotein 52 mg/dL; Triglycerides 234 mg/dL; Very Low Density Lipoprotein 47 mg/dL (5-40)
[2024-07-14] MEDS: KCL 20MEQ in 0.9% NS 20 MEQ/1,000 ML IV.SOLN. 150 MEQ IV ×2 (00:27→07:27)
[2024-07-14 00:30] LABS: Reflex Lactate? Y
[2024-07-14] MEDS: 0.9% Saline Lock 10 ML Syringe IV (00:51)
[2024-07-14] MEDS: HYDROmorphone 0.5 MG/0.5 ML SYRINGE IV ×5 (00:51→15:43)
[2024-07-14] MEDS: Pantoprazole Sodium 40 MG in 0.9% Normal Saline (100mL MB+) 100 ML 330 MG IV ×3 (01:28→20:19)
[2024-07-14 07:09] LABS: Lactic Acid 2.8 mmol/L (0.4-1.9)
[2024-07-14 07:31] LABS: Absolute Lymphocyte Count 0.42 X10^3/uL (0.83-4.51); Absolute Neutrophil Count 14.4 X10^3/uL (2.0-7.7); Basophil# 0.02 X10^3/uL; Basophil% 0.1 % (0-1); Eosinophil# 0.01 X10^3/uL; Eosinophils% 0.1 % (0-5); Hematocrit 42.8 % (40-54); Hemoglobin 14.7 g/dL (13.0-16.5); Lymphocyte # 0.42 X10^3/ul (0.83-4.51); Lymphocyte % 2.7 % (19-41); Mean Corp Hgb Conc 34.3 g/dL (32-36); Mean Corpuscular Hgb 30.1 pg (27.0-32.0); Mean Corpuscular Volume 87.7 fL (80-94); Mean Platelet Vol. 10.4 fl (6.2-12.0); Monocyte# 0.86 X10^3/uL; Monocyte% 5.5 % (0-10); NRBC Flagged by Analyzer 0 % (0-5); Neutrophil # 14.37 X10^3/uL (2.7-7.7); Neutrophil % 91.2 % (47-70); POSITIVE DIFFERENTIAL YES; Platelet Count 329 K/mm3 (150-450); RBC Distribution Width CV 12.7 % (11.6-14.6); RBC Distribution Width SD 40.9 fl (35.1-43.9); Red Blood Count 4.88 M/mm3 (4.6-6.2); White Blood Count 15.8 K/mm3 (4.4-11.0)
[2024-07-14 08:13] LABS: ALB/GLOB Ratio 1.4 RATIO (0.9-2.4); AST(SGOT) 105 U/L (15-37); Alanine Aminotransfer ALT/SGPT 87 U/L (16-61); Albumin, Serum 3.4 g/dL (3.2-5.0); Alkaline Phosphatase 75 U/L (45-117); Anion Gap 8 (5-15); BUN 15 mg/dL (7-18); BUN/Creat Ratio 14.6 RATIO (10-20); Calcium,Total 7.9 mg/dL (8.5-10.1); Chloride 110 mmol/L (98-107); Creatinine, Serum 1.03 mg/dL (0.70-1.30); EST Glomerular Filtration Rate 77 mL/min (>60); Est Glom Filt Rate - Afr Amer 93 mL/min (>60); Estimated Creatinine Clearance 70.59 ml/min; Globulin 2.4 g/dL (2.2-4.2); Glucose 292 mg/dL (74-106); Magnesium 1.8 mg/dL (1.6-2.6); Potassium 4.6 mmol/L (3.5-5.1); Protein, Total 5.8 g/dL (6.4-8.2); Sodium Level 140 mmol/L (136-145)
--- NOTE | 2024-07-14 08:20 | PN.HOSP_ITS ---
Reason for Visit Reason for Visit: Diagnoses Obesity, class 1 (07/13/24) Acidosis, unspecified (07/13/24) Hypokalemia (07/13/24) Alcohol abuse, uncomplicated (07/13/24) Hypotension, unspecified (07/13/24) Alcohol induced acute pancreatitis without necrosis or infection (07/13/24) Objective Data Objective Data Vital Signs: Vital Signs Temp Pulse Resp BP Pulse Ox O2 Del Method O2 Flow Rate 97.7 F L 79 26 H 142/93 H 96 Nasal Cannula 2 07/13/24 23:54 07/14/24 07:48 07/14/24 07:48 07/14/24 07:48 07/14/24 07:48 07/14/24 07:48 07/14/24 07:48 Oxygen Flow Rate (L/min) 2 Oxygen Delivery Method Nasal Cannula Weight: 186 lb 8.177 oz Body Mass Index (BMI) 31.0 Intake & Output: Intake and Output for Last 24 Hours 07/12/24 07/13/24 07/14/24 23:59 23:59 23:59 Intake Total 1100 / 1100 2110 / 2110 Output Total 225 / 225 Balance 1100 / 1100 1885 / 1885 Lab / Micro Data 07/14/24 05:00 07/14/24 05:00 Labs: Laboratory Results - last 24 hr 07/13/24 21:58: WBC 9.6, RBC 5.15, Hgb 15.1, Hct 44.0, MCV 85.4, MCH 29.3, MCHC 34.3, RDW Std Deviation 38.5, RDW Coeff of Vic 12.3, Plt Count 427, MPV 9.8, Immature Gran % (Auto) 0.700, Neut % (Auto) 54.7, Lymph % (Auto) 33.4, [place] % (Auto) 8.6, Eos % (Auto) 2.1, Baso % (Auto) 0.5, Absolute Neuts (auto) 5.3, Absolute Lymphs (auto) 3.20, Nucleated RBC % 0, PT 13.0, INR 1.0, APTT 22.3 L, Sodium 139, Potassium 3.0 L, Chloride 102, Carbon Dioxide 28.0, Anion Gap 9, BUN 11, Creatinine 1.20, Estim Creat Clear Calc 60.02, Est GFR (MDRD) Af Amer 78, Est GFR (MDRD) Non-Af 64, BUN/Creatinine Ratio 9.2 L, Glucose 196 H, Lactic Acid 4.3 H*, Calcium 9.2, Total Bilirubin 0.80, AST 186 H, ALT 82 H, Alkaline Phosphatase 90, Total Protein 7.1, Albumin 4.0, Globulin 3.1, Albumin/Globulin Ratio 1.3, Triglycerides 234 H, Cholesterol 223 H, LDL Cholesterol 124, VLDL Cholesterol 47 H, HDL Cholesterol 52, Lipase > 5000 H 07/14/24 00:22: Lactic Acid 2.8 H* 07/14/24 05:00: WBC 15.8 H, RBC 4.88, Hgb 14.7, Hct 42.8, MCV 87.7, MCH 30.1, MCHC 34.3, RDW Std Deviation 40.9, RDW Coeff of Vic 12.7, Plt Count 329, MPV 10.4, Immature Gran % (Auto) 0.400, Neut % (Auto) 91.2 H, Lymph % (Auto) 2.7 L, [place] % (Auto) 5.5, Eos % (Auto) 0.1, Baso % (Auto) 0.1, Absolute Neuts (auto) 14.4 H, Absolute Lymphs (auto) 0.42 L, Nucleated RBC % 0, Sodium 140, Potassium 4.6, Chloride 110 H, Carbon Dioxide 22.0, Anion Gap 8, BUN 15, Creatinine 1.03, Estim Creat Clear Calc 70.59, Est GFR (MDRD) Af Amer 93, Est GFR (MDRD) Non-Af 77, BUN/Creatinine Ratio 14.6, Glucose 292 H, Calcium 7.9 L, Phosphorus 4.0, Magnesium 1.8, Total Bilirubin 0.70, AST 105 H, ALT 87 H, Alkaline Phosphatase 75, Total Protein 5.8 L, Albumin 3.4, Globulin 2.4, Albumin/Globulin Ratio 1.4, TSH 1.710 Radiography Diagnostic Testing: Radiology Impression Abdomen/Pelvis CT 07/13/24 21:53 IMPRESSION: 1. Findings most consistent with acute pancreatitis. Follow-up as clinically necessary. 2. Colonic diverticulosis without evidence of acute diverticulitis. Electronically Signed: Martín Arriaga DO at 22:32 EST , ADDENDUM: 07/13/24 [id number] IMPRESSION: 1. Findings most consistent with acute pancreatitis. Follow-up as clinically necessary. 2. Colonic diverticulosis without evidence of acute diverticulitis. N.B. : Ton Jon MD, confirmed on 07/13/2024 22:41:33 (ET) that the healthcare facility has received the radiology report. Electronically Signed: Martín ArriagaDO at 22:32 EST , Physical Exam Narrative Seen and examined. patient states he has been drinking alcohol since age of 13 always beer, denies drinking hard liquor including vodka, rum or whiskey or thom. He said he had cut down and has been drinking 1 or 2 beers when he goes out for dinner probably 3 times a week. Denies other substance use. Complain of abdominal pain mainly upper 10/10 without radiation to the back/shoulder abdominal distention. Had BM about 2 to 3 days ago and was formed and normal-looking as per the patient. Denies blood or mucus. Feeling nausea Physical exam General: Alert, Oriented x3, Cooperative HEENT: Atraumatic, PERRLA, EOMI, Normocephalic Oral: Oral mucosa dry no Gingival or Mucosal Lesions/ Ulcerations Neck: Supple, No JVD, Negative Carotid Bruits Chest wall/Lungs: Air entry diminished in bilateral lung bases. No crepitation/rhonchi Cardiovascular: Regular rate, Regular Rhythm, Normal S1, Normal S2, No M/G/R Abdomen: Bowel Sounds sluggish. Tenderness present in epigastric/RUQ. Distended. Mild rebound tenderness present. : No dysuria. No renal angle tenderness. No suprapubic tenderness. Extremities: No edema, Capillary Refill Less than 3 Seconds Skin: No rashes, No breakdown Musculoskeletal: No Tenderness to Palpation of Joints or Extremities. ROM intact Neurological: Cranial nerves II-XII grossly intact, DTR 2+/4. No acute focal neurological deficit. Psych/Mental Status: Flat affect Assessment & Plan Assessment/Plan (1) Acute alcoholic pancreatitis: QUALIFIERS: Acute pancreatitis complication: no infection or necrosis Qualified Code(s): K85.20 - Alcohol induced acute pancreatitis without necrosis or infection (2) Acidosis, lactic: (3) Severe hypotension: (4) Chronic alcohol abuse: (5) Hypokalemia: (6) Obesity (BMI 30.0-34.9): PLAN: Plan 1. Acute alcoholic pancreatitis: serum lipase greater than 5,000 U/L along with confirmatory CT evidence of Acute Pancreatitis likely due to Chronic EtOH Abuse with AST 186 U/L and ALT 82 U/L with alkaline phosphatase 90 U/L -: Admitted to ICU. Afebrile. Keep strict NPO. Pantoprazole IV. CIWA monitoring. Phenobarbital discontinued as it has hepatotoxic effect and patient transaminases are elevated. Lactic acidosis probably from acute pancreatitis 2. Possible acute on chronic alcoholic hepatitis: AST more than ALT but improving. Total bili normal. ALP normal. Severe hypotension in the 90/60 mmHg range with Lactic Acidosis of 4.3 mmol/L present on admission: Blood pressure is recorded 142/93. Lactic acid improved from 4.3-2.8 3. Hypokalemia of 3 mmol/L present on admission compounding #1 & #2 - Give supplemental IV KCl and then recheck level in the AM to ensure repletion. 4. Obesity; with BMI of 32.7 this admission - Weight loss will be recommended. Check TSH. This complicates his case and may hamper recovery. 5. Essential hypertension; on amlodipine and lisinopril-HCTZ - Hold scheduled antihypertensives in light of #2. 6. Hyperlipidemia; on simvastatin - Restart simvastatin when patient is able to tolerate oral intake. Check Lipid Profile in light of #1. 7. Neuropathy; on gabapentin - Resume gabapentin when patient is cleared for oral intake. 8. History of diverticulosis - Noted on CT this admission with no signs of diverticulitis. 9. GERD; on omeprazole -on PPI 10. OA; with history of Right TKR on prn tramadol - Noted. Hold tramadol for now. 11. DVT prophylaxis - Lovenox 40 mg sq daily plus SCD's. Laboratory Results 07/13/24 08:30: Urine Color Yellow, Urine Clarity Clear, Urine pH 6.0, Ur Specific [place] 1.015, Urine Protein 15 H, Urine Glucose (UA) 1000 H, Urine Ketones 50 H, Urine Occult Blood Negative, Urine Nitrite Negative, Urine Bilirubin Negative, Urine Urobilinogen 1 H, Ur Leukocyte Esterase Negative, Urine RBC 0-5 SEEN, Urine WBC 0 SEEN, Ur Squamous Epith Cells 0 SEEN, Urine Bacteria 0 SEEN, Urine Mucus 0 SEEN 07/13/24 21:58: WBC 9.6, RBC 5.15, Hgb 15.1, Hct 44.0, MCV 85.4, MCH 29.3, MCHC 34.3, RDW Std Deviation 38.5, RDW Coeff of Vic 12.3, Plt Count 427, MPV 9.8, Immature Gran % (Auto) 0.700, Neut % (Auto) 54.7, Lymph % (Auto) 33.4, [place] % (Auto) 8.6, Eos % (Auto) 2.1, Baso % (Auto) 0.5, Absolute Neuts (auto) 5.3, Absolute Lymphs (auto) 3.20, Nucleated RBC % 0, PT 13.0, INR 1.0, APTT 22.3 L, Sodium 139, Potassium 3.0 L, Chloride 102, Carbon Dioxide 28.0, Anion Gap 9, BUN 11, Creatinine 1.20, Estim Creat Clear Calc 60.02, Est GFR (MDRD) Af Amer 78, Est GFR (MDRD) Non-Af 64, BUN/Creatinine Ratio 9.2 L, Glucose 196 H, Lactic Acid 4.3 H*, Calcium 9.2, Total Bilirubin 0.80, AST 186 H, ALT 82 H, Alkaline Phosphatase 90, Total Protein 7.1, Albumin 4.0, Globulin 3.1, Albumin/Globulin Ratio 1.3, Triglycerides 234 H, Cholesterol 223 H, LDL Cholesterol 124, VLDL Cholesterol 47 H, HDL Cholesterol 52, Lipase > 5000 H 07/14/24 00:22: Lactic Acid 2.8 H* 07/14/24 05:00: WBC 15.8 H, RBC 4.88, Hgb 14.7, Hct 42.8, MCV 87.7, MCH 30.1, MCHC 34.3, RDW Std Deviation 40.9, RDW Coeff of Vic 12.7, Plt Count 329, MPV 10.4, Immature Gran % (Auto) 0.400, Neut % (Auto) 91.2 H, Lymph % (Auto) 2.7 L, [place] % (Auto) 5.5, Eos % (Auto) 0.1, Baso % (Auto) 0.1, Absolute Neuts (auto) 14.4 H, Absolute Lymphs (auto) 0.42 L, Nucleated RBC % 0, Sodium 140, Potassium 4.6, Chloride 110 H, Carbon Dioxide 22.0, Anion Gap 8, BUN 15, Creatinine 1.03, Estim Creat Clear Calc 70.59, Est GFR (MDRD) Af Amer 93, Est GFR (MDRD) Non-Af 77, BUN/Creatinine Ratio 14.6, Glucose 292 H, Calcium 7.9 L, Phosphorus 4.0, Magnesium 1.8, Total Bilirubin 0.70, AST 105 H, ALT 87 H, Alkaline Phosphatase 75, Total Protein 5.8 L, Albumin 3.4, Globulin 2.4, Albumin/Globulin Ratio 1.4, TSH 1.710 Clinical Impression(s) from Imaging Studies Abdomen/Pelvis CT 07/13/24 21:53 IMPRESSION: 1. Findings most consistent with acute pancreatitis. Follow-up as clinically necessary. 2. Colonic diverticulosis without evidence of acute diverticulitis. Charges/Coding Visit Charges Inpatient E&M: 70076 Subs Hosp L3
[2024-07-14] MEDS: Phenobarbital 32.4 MG Tablet 97.2 MG PO (08:26)
[2024-07-14] MEDS: Enoxaparin 40 MG/0.4 ML Syringe SC (08:27)
[2024-07-14 08:42] LABS: Bacteria 0 SEEN /hpf (None Seen); Mucous, Urine 0 SEEN /hpf (<or=2+); Squamous Epithelial Cells - UA 0 SEEN /hpf (0-5); White Blood Cells 0 SEEN /hpf (0-5)
[2024-07-14 08:58] LABS: Color, Urine Yellow (Yellow); Glucose, Dipstick 1000 mg/dl (Normal); Ketone-Dipstick 50 mg/dl (Negative); Leukocyte Esterase-Dipstick Negative /ul (Negative); Nitrite-Dipstick Negative (Negative); Occult Blood-Urine Negative /ul (Negative); Protein-Dipstick 15 mg/dl (Negative); Specific Gravity, Urine 1.015 (1.002-1.030); Urine Bilirubin Dipstick Negative (Negative); Urine Clarity Clear (Clear); Urine Urobilinogen 1 mg/dl (Normal)
[2024-07-14] MEDS: Ondansetron 4 MG/2 ML Vial IV (09:04)
[2024-07-14 09:20] LABS: Red Blood Cells-Urine 0-5 SEEN /hpf (0-5)
--- NOTE | 2024-07-14 09:52 | CASEMGMT ---
TIFF IZQUIERDO Assessment Face to Face with patient for initial transition planning/care coordination assessment. RN TIMBO introduced self and role at [facility], pt voices understanding. Pt is A&Ox4 and is resting comfortably in bed and is calm. Pt SO at bedside. Care providers, pharmacy, and demographics verified. Admitting dx: ABD Pain LACE Strata: 2 PCP: Marcell Juan Specialists: Denies Preferred Pharmacy: [facility] Insurance: [facility] AD[facility] Prescription Benefit: Yes LNOK: Hoang Dixon (Partner/ SO) Living Arrangements: Pt lives with his SO in a two story home with a basement with 2 steps to enter the home ADLs/IADLs: Ind Transportation: Self, SO DME: Functioning BGM with sufficient supplies. BP Monitor. Cane. Pt is currently requiring additional oxygen. CM will follow for needs at DC. HHC/SNF: Denies history Pt?s goal: Decrease ABD pain and return home with his SO Plan: TBD. Anticipate DC home without any additional needs. 6-click is 21. Pt is ind and states that he feels safe returning home with his SO once he is medically ready. However, PT is ordered and pending. Pt does not anticipate needing HH or OP Tx of any sort but CM will follow therapy evaluations. Pt denies further questions or concerns at this time. Bryce Davis RN, CM
[2024-07-14] MEDS: KCL 20MEQ in 0.9% NS 20 MEQ/1,000 ML IV.SOLN. 200 MEQ IV ×2 (13:38→18:26)
[2024-07-14] MEDS: cloNIDine HCl 0.2 MG Tablet PO (20:19)
[2024-07-15] VITALS (28 sets, daily range): BP systolic 117–156; BP diastolic 73–115; PULSE 96–141; RESP 20–46; TEMP 36.1–36.7; O2SAT 90–95; BMI 31.6
[2024-07-15 03:07] LABS: GGTP 139 IU/L (0-65)
[2024-07-15 03:57] LABS: Absolute Lymphocyte Count 0.78 X10^3/uL (0.83-4.51); Absolute Neutrophil Count 16.1 X10^3/uL (2.0-7.7); Basophil# 0.11 X10^3/uL; Basophil% 0.6 % (0-1); Eosinophil# 0.26 X10^3/uL; Eosinophils% 1.4 % (0-5); Hematocrit 48.6 % (40-54); Hemoglobin 16.4 g/dL (13.0-16.5); Lymphocyte # 0.78 X10^3/ul (0.83-4.51); Lymphocyte % 4.3 % (19-41); Mean Corp Hgb Conc 33.7 g/dL (32-36); Mean Corpuscular Hgb 29.7 pg (27.0-32.0); Mean Corpuscular Volume 87.9 fL (80-94); Mean Platelet Vol. 10.2 fl (6.2-12.0); Monocyte# 0.84 X10^3/uL; Monocyte% 4.6 % (0-10); NRBC Flagged by Analyzer 0 % (0-5); Neutrophil # 16.12 X10^3/uL (2.7-7.7); Neutrophil % 88.7 % (47-70); POSITIVE MORPHOLOGY YES; Platelet Count 337 K/mm3 (150-450); RBC Distribution Width SD 41.8 fl (35.1-43.9); Red Blood Count 5.53 M/mm3 (4.6-6.2); White Blood Count 18.2 K/mm3 (4.4-11.0)
[2024-07-15 04:34] LABS: ALB/GLOB Ratio 0.9 RATIO (0.9-2.4); AST(SGOT) 29 U/L (15-37); Alanine Aminotransfer ALT/SGPT 49 U/L (16-61); Albumin, Serum 2.6 g/dL (3.2-5.0); Alkaline Phosphatase 60 U/L (45-117); Anion Gap 8 (5-15); BUN 22 mg/dL (7-18); BUN/Creat Ratio 17.6 RATIO (10-20); Calcium,Total 8.1 mg/dL (8.5-10.1); Chloride 114 mmol/L (98-107); Creatinine, Serum 1.25 mg/dL (0.70-1.30); EST Glomerular Filtration Rate 61 mL/min (>60); Est Glom Filt Rate - Afr Amer 74 mL/min (>60); Estimated Creatinine Clearance 58.66 ml/min; Glucose 296 mg/dL (74-106); Magnesium 2.1 mg/dL (1.6-2.6); Phosphorus 2.2 mg/dL (2.5-4.9); Potassium 4.5 mmol/L (3.5-5.1); Protein, Total 5.6 g/dL (6.4-8.2); Sodium Level 140 mmol/L (136-145)
[2024-07-15 05:08] LABS: Differential Indicated SCAN CRITERIA MET
[2024-07-15 05:09] LABS: Platelet Estimate ADEQUATE (ADEQ); Red Cell Morphology NORM C+C NORMAL (NORM C&C)
[2024-07-15 05:10] LABS: Differential Comment SCANNED
[2024-07-15] MEDS: cloNIDine HCl 0.2 MG Tablet PO ×2 (08:25→21:15)
[2024-07-15] MEDS: Enoxaparin 40 MG/0.4 ML Syringe SC (08:25)
[2024-07-15] MEDS: Pantoprazole Sodium 40 MG in 0.9% Normal Saline (100mL MB+) 100 ML 330 MG IV ×2 (08:26→21:16)
[2024-07-15 09:12] LABS: Lipase 848 U/L (13-75)
[2024-07-15] MEDS: KCL 20MEQ in 0.9% NS 20 MEQ/1,000 ML IV.SOLN. 200 MEQ IV ×3 (09:40→19:09)
[2024-07-15] MEDS: Na Biphos/Potassium Phosphate PACKET 1 PACKET PO ×2 (09:40→21:16)
[2024-07-15] MEDS: Phenobarbital 32.4 MG Tablet 64.8 MG PO ×4 (10:31→22:09)
[2024-07-15] MEDS: hydrOXYzine PAM 25 MG Capsule PO (13:11)
[2024-07-15] MEDS: Acetaminophen 500 MG Tablet PO ×2 (13:11→21:15)
--- NOTE | 2024-07-15 15:37 | PN.HOSP_ITS ---
Reason for Visit Reason for Visit: Diagnoses Obesity, class 1 (07/13/24) Acidosis, unspecified (07/13/24) Hypokalemia (07/13/24) Alcohol abuse, uncomplicated (07/13/24) Hypotension, unspecified (07/13/24) Alcohol induced acute pancreatitis without necrosis or infection (07/13/24) Objective Data Objective Data Vital Signs: Vital Signs Temp Pulse Resp BP Pulse Ox O2 Del Method O2 Flow Rate 98.0 F 129 H 46 H 128/91 H 94 Nasal Cannula 4 07/15/24 12:00 07/15/24 15:00 07/15/24 15:00 07/15/24 15:00 07/15/24 15:00 07/15/24 15:00 07/15/24 15:00 Oxygen Flow Rate (L/min) 4 Oxygen Delivery Method Nasal Cannula Weight: 189 lb 13.088 oz Body Mass Index (BMI) 31.6 Intake & Output: Intake and Output for Last 24 Hours 07/13/24 07/14/24 07/15/24 23:59 23:59 23:59 Intake Total 1100 / 1100 5290.0 / 5290.0 1636.67 / 1636.67 Output Total 1400 / 1400 1025 / 1025 Balance 1100 / 1100 3890.0 / 3890.0 611.67 / 611.67 Lab / Micro Data 07/15/24 03:45 07/15/24 03:45 Labs: Laboratory Results - last 24 hr 07/14/24 10:50: GGT 139 H 07/15/24 03:45: WBC 18.2 H, RBC 5.53, Hgb 16.4, Hct 48.6, MCV 87.9, MCH 29.7, MCHC 33.7, RDW Std Deviation 41.8, RDW Coeff of Vic 13.0, Plt Count 337, MPV 10.2, Immature Gran % (Auto) 0.400, Neut % (Auto) 88.7 H, Lymph % (Auto) 4.3 L, [place] % (Auto) 4.6, Eos % (Auto) 1.4, Baso % (Auto) 0.6, Absolute Neuts (auto) 16.1 H, Absolute Lymphs (auto) 0.78 L, Nucleated RBC % 0, Differential Comment SCANNED, Platelet Estimate ADEQUATE, RBC Morphology NORM C+C, Sodium 140, Potassium 4.5, Chloride 114 H, Carbon Dioxide 18.0 L, Anion Gap 8, BUN 22 H, Creatinine 1.25, Estim Creat Clear Calc 58.66, Est GFR (MDRD) Af Amer 74, Est GFR (MDRD) Non-Af 61, BUN/Creatinine Ratio 17.6, Glucose 296 H, Calcium 8.1 L, P hosphorus 2.2 L, Magnesium 2.1, Total Bilirubin 0.80, AST 29, ALT 49, Alkaline Phosphatase 60, Total Protein 5.6 L, Albumin 2.6 L, Globulin 3.0, Albumin/Globulin Ratio 0.9, Lipase 848 H Physical Exam Narrative Seen and examined. Abdominal pain is better, 7-8/10 intensity. Abdominal distention also better. Patient is still tachycardic heart rate about 130/min, tachypneic. Blood pressure normal. Requiring 4 L of oxygen. Physical exam General: Alert, Oriented x3, Cooperative HEENT: Atraumatic, PERRLA, EOMI, Normocephalic Oral: Oral mucosa dry no Gingival or Mucosal Lesions/ Ulcerations Neck: Supple, No JVD, Negative Carotid Bruits Chest wall/Lungs: Air entry diminished in bilateral lung bases. No crepitation/rhonchi Cardiovascular: Regular rate, Regular Rhythm, Normal S1, Normal S2, No M/G/R Abdomen: Bowel Sounds sluggish. Tenderness present in epigastric/RUQ. Mild distended. Mild rebound tenderness present. : No dysuria. No renal angle tenderness. No suprapubic tenderness. Extremities: No edema, Capillary Refill Less than 3 Seconds Skin: No rashes, No breakdown Musculoskeletal: No Tenderness to Palpation of Joints or Extremities. ROM intact Neurological: Cranial nerves II-XII grossly intact, DTR 2+/4. No acute focal neurological deficit. Psych/Mental Status: Flat affect Assessment & Plan Assessment/Plan (1) Acute alcoholic pancreatitis: QUALIFIERS: Acute pancreatitis complication: no infection or necrosis Qualified Code(s): K85.20 - Alcohol induced acute pancreatitis without necrosis or infection (2) Acidosis, lactic: (3) Severe hypotension: (4) Chronic alcohol abuse: (5) Hypokalemia: (6) Obesity (BMI 30.0-34.9): PLAN: Plan 64-year-old gentleman admitted with severe abdominal pain, increased lipase and CT findings suggestive of acute pancreatitis. He has been drinking alcohol since age of 13 always beer, denies drinking hard liquor including vodka, rum or whiskey or thom. He said he had cut down and has been drinking 1 or 2 beers when he goes out for dinner probably 3 times a week. Denies other substance use. 1. Acute alcoholic pancreatitis: serum lipase greater than 5,000 U/L along with confirmatory CT evidence of Acute Pancreatitis likely due to Chronic EtOH Abuse with AST 186 U/L and ALT 82 U/L with alkaline phosphatase 90 U/L -: Admitted to ICU. Afebrile. Keep strict NPO. Pantoprazole IV. CIWA monitoring. Phenobarbital discontinued as it has hepatotoxic effect and patient transaminases are elevated. Lactic acidosis probably from acute pancreatitis 07/15: Patient is still tachycardic 129/min, tachypneic 46/min. BUNs/creatinine 22/1.25. Continue IV fluid normal saline plus KCl at 200 mL/h. 2. Acute alcohol withdrawal syndrome with possible acute on chronic alcoholic hepatitis: AST more than ALT but improving. Total bili normal. ALP normal. 07/15: Liver chemistry shows normal ALT and AST. GGT elevated 139 suggestive of chronic alcohol use. Alkaline phosphatase normal. Hypoalbuminemia. TB normal. Chest patient having tachycardia tachypnea and features of acute alcohol withdrawal therefore started on phenobarbital based order set along with other adjunctive medications gabapentin, Bentyl, Vistaril, clonidine, as needed for alcohol withdrawal symptom control. Patient is on thiamine and folate acid. Dose of hydroxyzine and gabapentin decreased. CIWA monitor. franchise manager 180 consulted. Severe hypotension in the 90/60 mmHg range with Lactic Acidosis of 4.3 mmol/L present on admission: Blood pressure is recorded 142/93. Lactic acid improved from 4.3-2.8 07/15: Hypotension has resolved. 3. Hypokalemia of 3 mmol/L present on admission compounding #1 & #2 - Give supplemental IV KCl and then recheck level in the AM to ensure repletion. 07/15: Hypokalemia is resolved 4. Obesity; with BMI of 32.7 this admission - Weight loss will be recommended. Check TSH. This complicates his case and may hamper recovery. 5. Essential hypertension; on amlodipine and lisinopril-HCTZ - Hold scheduled antihypertensives in light of #2. 6. Hyperlipidemia; on simvastatin - Restart simvastatin when patient is able to tolerate oral intake. Check Lipid Profile in light of #1. 7. Neuropathy; on gabapentin - Resume gabapentin when patient is cleared for oral intake. 8. History of diverticulosis - Noted on CT this admission with no signs of diverticulitis. 9. GERD; on omeprazole -on PPI 10. OA; with history of Right TKR on prn tramadol - Noted. Hold tramadol for now. 11. DVT prophylaxis - Lovenox 40 mg sq daily plus SCD's. Laboratory Results 07/14/24 10:50: GGT 139 H 07/15/24 03:45: WBC 18.2 H, RBC 5.53, Hgb 16.4, Hct 48.6, MCV 87.9, MCH 29.7, MCHC 33.7, RDW Std Deviation 41.8, RDW Coeff of Vic 13.0, Plt Count 337, MPV 10.2, Immature Gran % (Auto) 0.400, Neut % (Auto) 88.7 H, Lymph % (Auto) 4.3 L, [place] % (Auto) 4.6, Eos % (Auto) 1.4, Baso % (Auto) 0.6, Absolute Neuts (auto) 16.1 H, Absolute Lymphs (auto) 0.78 L, Nucleated RBC % 0, Differential Comment SCANNED, Platelet Estimate ADEQUATE, RBC Morphology NORM C+C, Sodium 140, Potassium 4.5, Chloride 114 H, Carbon Dioxide 18.0 L, Anion Gap 8, BUN 22 H, Creatinine 1.25, Estim Creat Clear Calc 58.66, Est GFR (MDRD) Af Amer 74, Est GFR (MDRD) Non-Af 61, BUN/Creatinine Ratio 17.6, Glucose 296 H, Calcium 8.1 L, P hosphorus 2.2 L, Magnesium 2.1, Total Bilirubin 0.80, AST 29, ALT 49, Alkaline Phosphatase 60, Total Protein 5.6 L, Albumin 2.6 L, Globulin 3.0, Albumin/Globulin Ratio 0.9, Lipase 848 H Clinical Impression(s) from Imaging Studies Abdomen/Pelvis CT 07/13/24 21:53 IMPRESSION: 1. Findings most consistent with acute pancreatitis. Follow-up as clinically necessary. 2. Colonic diverticulosis without evidence of acute diverticulitis. Charges/Coding Visit Charges Inpatient E&M: 51103 Subs Hosp L3
[2024-07-15] MEDS: Metoprolol Tartrate 25 MG Tablet PO ×2 (16:05→21:15)
--- NOTE | 2024-07-15 16:11 | CASEMGMT ---
Social Work SW met with pt to discuss alcohol use and cessation. Pt states that he does not have a drinking problem and that alcohol is not the reason for medical problems. Pt denies need for alcohol resources. IVAN Laird
[2024-07-15] MEDS: Dicyclomine 10 MG Capsule 20 MG PO (21:15)
[2024-07-15] MEDS: traZODone 50 MG Tablet PO (21:16)
[2024-07-16] VITALS (18 sets, daily range): BP systolic 99–156; BP diastolic 61–95; PULSE 91–114; RESP 18–30; TEMP 36.4–36.8; O2SAT 91–97; BMI 32.5
[2024-07-16] MEDS: Phenobarbital 32.4 MG Tablet 64.8 MG PO ×6 (03:34→23:06)
[2024-07-16 03:58] LABS: Absolute Lymphocyte Count 0.71 X10^3/uL (0.83-4.51); Absolute Neutrophil Count 12.1 X10^3/uL (2.0-7.7); Basophil# 0.04 X10^3/uL; Basophil% 0.3 % (0-1); Eosinophil# 0.12 X10^3/uL; Eosinophils% 0.9 % (0-5); Hematocrit 41.5 % (40-54); Hemoglobin 13.9 g/dL (13.0-16.5); Lymphocyte # 0.71 X10^3/ul (0.83-4.51); Lymphocyte % 5.2 % (19-41); Mean Corp Hgb Conc 33.5 g/dL (32-36); Mean Corpuscular Hgb 29.7 pg (27.0-32.0); Mean Corpuscular Volume 88.7 fL (80-94); Mean Platelet Vol. 10.5 fl (6.2-12.0); Monocyte# 0.55 X10^3/uL; NRBC Flagged by Analyzer 0 % (0-5); Neutrophil # 12.13 X10^3/uL (2.7-7.7); POSITIVE MORPHOLOGY YES; Platelet Count 255 K/mm3 (150-450); RBC Distribution Width CV 13.2 % (11.6-14.6); Red Blood Count 4.68 M/mm3 (4.6-6.2); White Blood Count 13.6 K/mm3 (4.4-11.0)
[2024-07-16 04:31] LABS: ALB/GLOB Ratio 0.6 RATIO (0.9-2.4); AST(SGOT) 21 U/L (15-37); Alanine Aminotransfer ALT/SGPT 31 U/L (16-61); Albumin, Serum 2.2 g/dL (3.2-5.0); Alkaline Phosphatase 60 U/L (45-117); Anion Gap 6 (5-15); BUN 21 mg/dL (7-18); Calcium,Total 8.1 mg/dL (8.5-10.1); Chloride 110 mmol/L (98-107); EST Glomerular Filtration Rate 80 mL/min (>60); Est Glom Filt Rate - Afr Amer 96 mL/min (>60); Estimated Creatinine Clearance 73.32 ml/min; Globulin 3.4 g/dL (2.2-4.2); Glucose 188 mg/dL (74-106); Potassium 4.2 mmol/L (3.5-5.1); Protein, Total 5.6 g/dL (6.4-8.2); Sodium Level 140 mmol/L (136-145)
[2024-07-16 05:05] LABS: Differential Indicated SCAN CRITERIA MET
[2024-07-16 05:06] LABS: Differential Comment SCANNED; Platelet Estimate ADEQUATE (ADEQ); Red Cell Morphology NORM C+C NORMAL (NORM C&C)
[2024-07-16] MEDS: Folic Acid 1 MG Tablet PO (08:04)
[2024-07-16] MEDS: Thiamine Hydrochloride 100 MG Tablet PO (08:04)
[2024-07-16] MEDS: Pantoprazole Sodium 40 MG in 0.9% Normal Saline (100mL MB+) 100 ML 330 MG IV ×2 (08:42→23:10)
[2024-07-16] MEDS: 0.9% Saline Lock 10 ML Syringe IV (08:42)
--- NOTE | 2024-07-16 08:56 | PCM.PN.HOSP ---
Reason for Visit Reason for Visit: Diagnoses Obesity, class 1 (07/13/24) Acidosis, unspecified (07/13/24) Hypokalemia (07/13/24) Alcohol abuse, uncomplicated (07/13/24) Hypotension, unspecified (07/13/24) Alcohol induced acute pancreatitis without necrosis or infection (07/13/24) Objective Data Objective Data Vital Signs: Vital Signs Temp Pulse Resp BP Pulse Ox O2 Del Method O2 Flow Rate 97.7 F L 102 H 30 H 136/79 H 93 Nasal Cannula 4 07/16/24 04:00 07/16/24 07:00 07/16/24 07:00 07/16/24 07:00 07/16/24 07:00 07/16/24 07:00 07/16/24 07:00 Oxygen Flow Rate (L/min) 4 Oxygen Delivery Method Nasal Cannula Weight: 195 lb 1.6 oz Body Mass Index (BMI) 32.5 Intake & Output: Intake and Output for Last 24 Hours 07/14/24 07/15/24 07/16/24 23:59 23:59 23:59 Intake Total 5290.0 / 5290.0 3066.67 / 3066.67 1000 / 1000 Output Total 1400 / 1400 1325 / 1625 300 / 300 Balance 3890.0 / 3890.0 1741.67 / 1441.67 700 / 700 Lab / Micro Data 07/16/24 03:44 07/16/24 03:44 Labs: Laboratory Results - last 24 hr 07/15/24 03:45: Lipase 848 H 07/16/24 03:44: WBC 13.6 H, RBC 4.68, Hgb 13.9, Hct 41.5, MCV 88.7, MCH 29.7, MCHC 33.5, RDW Std Deviation 43.0, RDW Coeff of Vic 13.2, Plt Count 255, MPV 10.5, Immature Gran % (Auto) 0.600, Neut % (Auto) 89.0 H, Lymph % (Auto) 5.2 L, [place] % (Auto) 4.0, Eos % (Auto) 0.9, Baso % (Auto) 0.3, Absolute Neuts (auto) 12.1 H, Absolute Lymphs (auto) 0.71 L, Nucleated RBC % 0, Differential Comment SCANNED, Platelet Estimate ADEQUATE, RBC Morphology NORM C+C, Sodium 140, Potassium 4.2, Chloride 110 H, Carbon Dioxide 23.0, Anion Gap 6, BUN 21 H, Creatinine 1.00, Estim Creat Clear Calc 73.32, Est GFR (MDRD) Af Amer 96, Est GFR (MDRD) Non-Af 80, BUN/Creatinine Ratio 21.0 H, Glucose 188 H, Calcium 8.1 L, Total Bilirubin 1.20 H, AST 21, ALT 31, Alkaline Phosphatase 60, Total Protein 5.6 L, Albumin 2.2 L, Globulin 3.4, Albumin/Globulin Ratio 0.6 L Physical Exam Narrative Seen and examined. Abdominal pain is better, 3-4/10 intensity. Abdominal distention also better. Patient has good sleep yesterday. Tachycardia is also controlled. Requiring 4 L of oxygen. Physical exam General: Alert, Oriented x3, Cooperative HEENT: Atraumatic, PERRLA, EOMI, Normocephalic Oral: Oral mucosa dry no Gingival or Mucosal Lesions/ Ulcerations Neck: Supple, No JVD, Negative Carotid Bruits Chest wall/Lungs: Air entry diminished in bilateral lung bases. No crepitation/rhonchi Cardiovascular: Regular rate, Regular Rhythm, Normal S1, Normal S2, No M/G/R Abdomen: Bowel Sounds sluggish. Mild tenderness present in epigastric/RUQ. Mild distended. : No dysuria. No renal angle tenderness. No suprapubic tenderness. Extremities: No edema, Capillary Refill Less than 3 Seconds Skin: No rashes, No breakdown Musculoskeletal: No Tenderness to Palpation of Joints or Extremities. ROM intact Neurological: Cranial nerves II-XII grossly intact, DTR 2+/4. No acute focal neurological deficit. Psych/Mental Status: Flat affect Assessment & Plan Assessment/Plan (1) Acute alcoholic pancreatitis: QUALIFIERS: Acute pancreatitis complication: no infection or necrosis Qualified Code(s): K85.20 - Alcohol induced acute pancreatitis without necrosis or infection (2) Acidosis, lactic: (3) Severe hypotension: (4) Chronic alcohol abuse: (5) Hypokalemia: (6) Obesity (BMI 30.0-34.9): PLAN: Plan 64-year-old gentleman admitted with severe abdominal pain, increased lipase and CT findings suggestive of acute pancreatitis. He has been drinking alcohol since age of 13 always beer, denies drinking hard liquor including vodka, rum or whiskey or thom. He said he had cut down and has been drinking 1 or 2 beers when he goes out for dinner probably 3 times a week. Denies other substance use. 1. Acute alcoholic pancreatitis complicated with acute on chronic alcoholic hepatitis: serum lipase greater than 5,000 U/L along with confirmatory CT evidence of Acute Pancreatitis likely due to Chronic EtOH Abuse with AST 186 U/L and ALT 82 U/L with alkaline phosphatase 90 U/L -: Admitted to ICU. Afebrile. Keep strict NPO. Pantoprazole IV. CIWA monitoring. Phenobarbital discontinued as it has hepatotoxic effect and patient transaminases are elevated. Lactic acidosis probably from acute pancreatitis 07/15: Patient is still tachycardic 129/min, tachypneic 46/min. BUNs/creatinine 22/1.25. Continue IV fluid normal saline plus KCl at 200 mL/h. 07/16: BUN/creatinine ratio 21, BUN 21, creatinine 1.0. IV fluid NS plus KCl decreased to 150 mL/h 2. Acute alcohol withdrawal syndrome with possible acute on chronic alcoholic hepatitis: AST more than ALT but improving. Total bili normal. ALP normal. 07/15: Liver chemistry shows normal ALT and AST. GGT elevated 139 suggestive of chronic alcohol use. Alkaline phosphatase normal. Hypoalbuminemia. TB normal. Chest patient having tachycardia tachypnea and features of acute alcohol withdrawal therefore started on phenobarbital based order set along with other adjunctive medications gabapentin, Bentyl, Vistaril, clonidine, as needed for alcohol withdrawal symptom control. Patient is on thiamine and folate acid. Dose of hydroxyzine and gabapentin decreased. CIWA monitor. irrigation manager 180 consulted. 07/16: Liver chemistry shows normal transaminases and alkaline phosphatase but total bilirubin went up 0.8-1.2 probably after starting phenobarbital. Phenobarbital dose decreased but patient needs as controlling withdrawal symptoms well. Transfer to [facility] floor. 3 severe hypotension in the 90/60 mmHg range with Lactic Acidosis of 4.3 mmol/L present on admission: Blood pressure is recorded 142/93. Lactic acid improved from 4.3-2.8 07/15: Hypotension has resolved. 4. Hypokalemia of 3 mmol/L present on admission compounding #1 & #2 - Give supplemental IV KCl and then recheck level in the AM to ensure repletion. 07/15: Hypokalemia is resolved 4. Obesity; with BMI of 32.7 this admission - Weight loss will be recommended. Check TSH. This complicates his case and may hamper recovery. 5. Essential hypertension; on amlodipine and lisinopril-HCTZ - Hold scheduled antihypertensives in light of #2. 6. Hyperlipidemia; on simvastatin - Restart simvastatin when patient is able to tolerate oral intake. Check Lipid Profile in light of #1. 7. Neuropathy; on gabapentin - Resume gabapentin when patient is cleared for oral intake. 8. History of diverticulosis - Noted on CT this admission with no signs of diverticulitis. 9. GERD; on omeprazole -on PPI 10. OA; with history of Right TKR on prn tramadol - Noted. Hold tramadol for now. 11. DVT prophylaxis - Lovenox 40 mg sq daily plus SCD's. Clinical Impression(s) from Imaging Studies Abdomen/Pelvis CT 07/13/24 21:53 IMPRESSION: 1. Findings most consistent with acute pancreatitis. Follow-up as clinically necessary. 2. Colonic diverticulosis without evidence of acute diverticulitis. Charges/Coding Visit Charges Inpatient E&M: 98802 Subs Hosp L3
[2024-07-16] MEDS: KCL 20MEQ in 0.9% NS 20 MEQ/1,000 ML IV.SOLN. 200 MEQ IV ×2 (09:36→14:00)
[2024-07-16] MEDS: cloNIDine HCl 0.2 MG Tablet PO ×2 (09:37→23:06)
[2024-07-16] MEDS: Na Biphos/Potassium Phosphate PACKET 1 PACKET PO ×2 (09:37→23:06)
[2024-07-16] MEDS: Enoxaparin 40 MG/0.4 ML Syringe SC (09:37)
[2024-07-16] MEDS: Metoprolol Tartrate 25 MG Tablet PO ×2 (09:42→23:06)
--- NOTE | 2024-07-16 13:58 | CASEMGMT ---
Addendum entered by Caridad Barnett 07/16/24 15:27: No noted qualifying dx for oxygen at this time. Original Note: RN TIMBO into pt room, pt attempting to call out on phone. TIFF IZQUIERDO assisted. Discussed local in network DME providers should pt need oxygen upon dc, pt chose [employer]. Pt denies any further homegoing needs. TIFF IZQUIERDO to follow. Green sheet on chart.
[2024-07-17] VITALS (14 sets, daily range): BP systolic 128–149; BP diastolic 78–91; PULSE 81–111; RESP 10–30; TEMP 36.6–37.3; O2SAT 92–97; BMI 32.7
[2024-07-17] MEDS: Albuterol 2.5 MG/3 ML VIAL.NEB. INHALATION ×2 (02:42→13:54)
[2024-07-17] MEDS: Phenobarbital 32.4 MG Tablet 64.8 MG PO ×5 (03:03→18:09)
[2024-07-17] MEDS: Thiamine Hydrochloride 100 MG Tablet PO (07:54)
[2024-07-17] MEDS: Folic Acid 1 MG Tablet PO (07:54)
[2024-07-17] MEDS: Pantoprazole Sodium 40 MG in 0.9% Normal Saline (100mL MB+) 100 ML 330 MG IV ×2 (11:31→22:47)
[2024-07-17] MEDS: Metoprolol Tartrate 25 MG Tablet PO ×2 (11:37→22:47)
[2024-07-17] MEDS: cloNIDine HCl 0.2 MG Tablet PO ×2 (11:37→22:47)
[2024-07-17] MEDS: Enoxaparin 40 MG/0.4 ML Syringe SC (11:38)
[2024-07-17] MEDS: Na Biphos/Potassium Phosphate PACKET 1 PACKET PO ×2 (11:38→22:47)
[2024-07-17 12:42] LABS: Absolute Lymphocyte Count 0.69 X10^3/uL (0.83-4.51); Absolute Neutrophil Count 11.4 X10^3/uL (2.0-7.7); Basophil# 0.06 X10^3/uL; Basophil% 0.5 % (0-1); Eosinophil# 0.13 X10^3/uL; Hematocrit 36.5 % (40-54); Hemoglobin 12.3 g/dL (13.0-16.5); Lymphocyte # 0.69 X10^3/ul (0.83-4.51); Lymphocyte % 5.3 % (19-41); Mean Corp Hgb Conc 33.7 g/dL (32-36); Mean Corpuscular Hgb 29.6 pg (27.0-32.0); Mean Platelet Vol. 10.6 fl (6.2-12.0); Monocyte# 0.76 X10^3/uL; Monocyte% 5.8 % (0-10); NRBC Flagged by Analyzer 0 % (0-5); Neutrophil # 11.38 X10^3/uL (2.7-7.7); Neutrophil % 86.7 % (47-70); Platelet Count 255 K/mm3 (150-450); RBC Distribution Width CV 12.9 % (11.6-14.6); RBC Distribution Width SD 41.7 fl (35.1-43.9); Red Blood Count 4.15 M/mm3 (4.6-6.2); White Blood Count 13.1 K/mm3 (4.4-11.0)
--- NOTE | 2024-07-17 12:55 | RAD_ITS ---
STUDY: X-RAY CHEST REASON FOR EXAM: Male, 64 years old. SOB TECHNIQUE: PA and lateral views of the chest. COMPARISON: May 04, 2024 FINDINGS: There is bilateral lower lung consolidation. There are small bilateral pleural effusions. Normal size heart. Normal mediastinum and chantal. Normal visualized pulmonary arteries. Normal visualized aortic arch and descending thoracic aorta. Normal visualized thoracic spine. Normal visualized ribs, clavicles, and shoulders. There is no demonstrated abnormality of the visualized soft tissue structures of the upper abdomen. RAD/Chest PA and Lateral IMPRESSION: Lower lung edema or pneumonia and pleural effusions. Electronically Signed: Anil Lemus MD at 11:51 EST ,
[2024-07-17 13:02] LABS: AST(SGOT) 24 U/L (15-37); Alanine Aminotransfer ALT/SGPT 26 U/L (16-61); Albumin, Serum 2.1 g/dL (3.2-5.0); Alkaline Phosphatase 77 U/L (45-117); Anion Gap 5 (5-15); BUN 11 mg/dL (7-18); BUN/Creat Ratio 15.3 RATIO (10-20); Bilirubin, Direct 0.22 mg/dL (0.00-0.30); Chloride 107 mmol/L (98-107); Creatinine, Serum 0.72 mg/dL (0.70-1.30); EST Glomerular Filtration Rate 116 mL/min (>60); Est Glom Filt Rate - Afr Amer 141 mL/min (>60); Estimated Creatinine Clearance 93.19 ml/min; Globulin 3.7 g/dL (2.2-4.2); Glucose 186 mg/dL (74-106); Potassium 3.6 mmol/L (3.5-5.1); Protein, Total 5.8 g/dL (6.4-8.2); Sodium Level 137 mmol/L (136-145)
--- NOTE | 2024-07-17 13:41 | PCM.PN.HOSP ---
Reason for Visit Reason for Visit: Diagnoses Obesity, class 1 (07/13/24) Acidosis, unspecified (07/13/24) Hypokalemia (07/13/24) Alcohol abuse, uncomplicated (07/13/24) Hypotension, unspecified (07/13/24) Alcohol induced acute pancreatitis without necrosis or infection (07/13/24) Objective Data Objective Data Vital Signs: Vital Signs Temp Pulse Resp BP Pulse Ox O2 Del Method O2 Flow Rate 99.1 F 106 H 18 141/85 H 96 Nasal Cannula 3 07/17/24 13:40 07/17/24 13:40 07/17/24 13:40 07/17/24 13:40 07/17/24 13:40 07/17/24 13:40 07/17/24 13:40 Oxygen Flow Rate (L/min) 3 Oxygen Delivery Method Nasal Cannula Weight: 196 lb 6.91 oz Body Mass Index (BMI) 32.7 Intake & Output: Intake and Output for Last 24 Hours 07/15/24 07/16/24 07/17/24 23:59 23:59 23:59 Intake Total 3066.67 / 3066.67 3283.33 / 3283.33 Output Total 1325 / 1625 550 / 550 Balance 1741.67 / 1441.67 2733.33 / 2733.33 Lab / Micro Data 07/17/24 12:26 07/17/24 12:26 Labs: Laboratory Results - last 24 hr 07/17/24 12:26: WBC 13.1 H, RBC 4.15 L, Hgb 12.3 L, Hct 36.5 L, MCV 88.0, MCH 29.6, MCHC 33.7, RDW Std Deviation 41.7, RDW Coeff of Vic 12.9, Plt Count 255, MPV 10.6, Immature Gran % (Auto) 0.700, Neut % (Auto) 86.7 H, Lymph % (Auto) 5.3 L, [place] % (Auto) 5.8, Eos % (Auto) 1.0, Baso % (Auto) 0.5, Absolute Neuts (auto) 11.4 H, Absolute Lymphs (auto) 0.69 L, Nucleated RBC % 0, Sodium 137, Potassium 3.6, Chloride 107, Carbon Dioxide 25.0, Anion Gap 5, BUN 11, Creatinine 0.72, Estim Creat Clear Calc 93.19, Est GFR (MDRD) Af Amer 141, Est GFR (MDRD) Non-Af 116, BUN/Creatinine Ratio 15.3, Glucose 186 H, Calcium 8.0 L, Total Bilirubin 0.60, Direct Bilirubin 0.22, AST 24, ALT 26, Alkaline Phosphatase 77, Total Protein 5.8 L, Albumin 2.1 L, Globulin 3.7 Physical Exam Narrative Seen and examined. Abdominal pain is much resolved about 1-2/10 intensity. Patient is short of breath. Denies history of smoking/COPD/emphysema. Patient is wheezing. Mild hypoxia Physical exam General: Alert, Oriented x3, Cooperative HEENT: Atraumatic, PERRLA, EOMI, Normocephalic Oral: Oral mucosa dry no Gingival or Mucosal Lesions/ Ulcerations Neck: Supple, No JVD, Negative Carotid Bruits Chest wall/Lungs: Air entry diminished in bilateral lung bases. Bilateral wheezing Cardiovascular: Regular rate, Regular Rhythm, Normal S1, Normal S2, No M/G/R Abdomen: Bowel Sounds sluggish. No tenderness present in epigastric/RUQ. Mild distended. : No dysuria. No renal angle tenderness. No suprapubic tenderness. Extremities: No edema, Capillary Refill Less than 3 Seconds Skin: No rashes, No breakdown Musculoskeletal: No Tenderness to Palpation of Joints or Extremities. ROM intact Neurological: Cranial nerves II-XII grossly intact, DTR 2+/4. No acute focal neurological deficit. Psych/Mental Status: Flat affect Assessment & Plan Assessment/Plan (1) Acute alcoholic pancreatitis: QUALIFIERS: Acute pancreatitis complication: no infection or necrosis Qualified Code(s): K85.20 - Alcohol induced acute pancreatitis without necrosis or infection (2) Acidosis, lactic: (3) Severe hypotension: (4) Chronic alcohol abuse: (5) Hypokalemia: (6) Obesity (BMI 30.0-34.9): PLAN: Plan 64-year-old gentleman admitted with severe abdominal pain, increased lipase and CT findings suggestive of acute pancreatitis. He has been drinking alcohol since age of 13 always beer, denies drinking hard liquor including vodka, rum or whiskey or thom. He said he had cut down and has been drinking 1 or 2 beers when he goes out for dinner probably 3 times a week. Denies other substance use. 1. Acute alcoholic pancreatitis complicated with acute on chronic alcoholic hepatitis: serum lipase greater than 5,000 U/L along with confirmatory CT evidence of Acute Pancreatitis likely due to Chronic EtOH Abuse with AST 186 U/L and ALT 82 U/L with alkaline phosphatase 90 U/L -: Admitted to ICU. Afebrile. Keep strict NPO. Pantoprazole IV. CIWA monitoring. Phenobarbital discontinued as it has hepatotoxic effect and patient transaminases are elevated. Lactic acidosis probably from acute pancreatitis 07/15: Patient is still tachycardic 129/min, tachypneic 46/min. BUNs/creatinine 22/1.25. Continue IV fluid normal saline plus KCl at 200 mL/h. 07/16: BUN/creatinine ratio 21, BUN 21, creatinine 1.0. IV fluid NS plus KCl decreased to 150 mL/h Close present: Abdominal pain is much improved almost resolved. Fluid overload: 07/17: IV fluid discontinued. Patient mild tachycardia, hypoxic and short of breath. IV Lasix 40 mg ordered as patient received significant IV fluid because of alcoholic pancreatitis. Chest x-ray PA and lateral reviewed and shows hypoventilation and increased venous engorgement. Lasix 40 mg IV ordered. Advised routine 2D echo as an outpatient being weekend and is not urgent. 2. Acute alcohol withdrawal syndrome with possible acute on chronic alcoholic hepatitis: AST more than ALT but improving. Total bili normal. ALP normal. 07/15: Liver chemistry shows normal ALT and AST. GGT elevated 139 suggestive of chronic alcohol use. Alkaline phosphatase normal. Hypoalbuminemia. TB normal. Chest patient having tachycardia tachypnea and features of acute alcohol withdrawal therefore started on phenobarbital based order set along with other adjunctive medications gabapentin, Bentyl, Vistaril, clonidine, as needed for alcohol withdrawal symptom control. Patient is on thiamine and folate acid. Dose of hydroxyzine and gabapentin decreased. CIWA monitor. [employer] manager 180 consulted. 07/16: Liver chemistry shows normal transaminases and alkaline phosphatase but total bilirubin went up 0.8-1.2 probably after starting phenobarbital. Phenobarbital dose decreased but patient needs as controlling withdrawal symptoms well. Transfer to [facility] floor. 07/17: Liver chemistry shows normal. 3 severe hypotension in the 90/60 mmHg range with Lactic Acidosis of 4.3 mmol/L present on admission: Blood pressure is recorded 142/93. Lactic acid improved from 4.3-2.8 07/15: Hypotension has resolved. 4. Hypokalemia of 3 mmol/L present on admission compounding #1 & #2 - Give supplemental IV KCl and then recheck level in the AM to ensure repletion. 07/15: Hypokalemia is resolved 4. Obesity; with BMI of 32.7 this admission - Weight loss will be recommended. T 07/17: TSH normal. 5. Essential hypertension; on amlodipine and lisinopril-HCTZ - Hold scheduled antihypertensives in light of #2. 6. Hyperlipidemia; on simvastatin - Restart simvastatin when patient is able to tolerate oral intake. Check Lipid Profile in light of #1. 7. Neuropathy; on gabapentin - Resume gabapentin when patient is cleared for oral intake. 8. History of diverticulosis - Noted on CT this admission with no signs of diverticulitis. 9. GERD; on omeprazole -on PPI 10. OA; with history of Right TKR on prn tramadol - Noted. Hold tramadol for now. 11. DVT prophylaxis - Lovenox 40 mg sq daily plus SCD's. Clinical Impression(s) from Imaging Studies Abdomen/Pelvis CT 07/13/24 21:53 IMPRESSION: 1. Findings most consistent with acute pancreatitis. Follow-up as clinically necessary. 2. Colonic diverticulosis without evidence of acute diverticulitis. Charges/Coding Visit Charges Inpatient E&M: 59191 Subs Hosp L2
[2024-07-17] MEDS: Furosemide 40 MG/4 ML Vial IV ×2 (13:42→17:21)
[2024-07-17] MEDS: Ipratropium/Albuterol Sulfate 3 ML AMPUL.NEB INHALATION (23:00)
[2024-07-18] VITALS (8 sets, daily range): BP systolic 116–154; BP diastolic 70–87; PULSE 91–102; RESP 18; TEMP 36.7–37.2; O2SAT 93–96; BMI 32.8
[2024-07-18] MEDS: Phenobarbital 32.4 MG Tablet 64.8 MG PO ×2 (02:01→06:00)
[2024-07-18] MEDS: Acetaminophen 500 MG Tablet PO (04:02)
[2024-07-18 07:29] LABS: Absolute Lymphocyte Count 0.74 X10^3/uL (0.83-4.51); Absolute Neutrophil Count 11.5 X10^3/uL (2.0-7.7); Basophil# 0.06 X10^3/uL; Basophil% 0.4 % (0-1); Eosinophil# 0.29 X10^3/uL; Eosinophils% 2.1 % (0-5); Hematocrit 35.1 % (40-54); Hemoglobin 11.8 g/dL (13.0-16.5); Lymphocyte # 0.74 X10^3/ul (0.83-4.51); Lymphocyte % 5.3 % (19-41); Mean Corp Hgb Conc 33.6 g/dL (32-36); Mean Corpuscular Hgb 29.4 pg (27.0-32.0); Mean Corpuscular Volume 87.5 fL (80-94); Mean Platelet Vol. 10.7 fl (6.2-12.0); Monocyte# 1.22 X10^3/uL; Monocyte% 8.7 % (0-10); NRBC Flagged by Analyzer 0.1 % (0-5); Neutrophil # 11.51 X10^3/uL (2.7-7.7); Neutrophil % 81.9 % (47-70); Platelet Count 259 K/mm3 (150-450); RBC Distribution Width CV 12.9 % (11.6-14.6); RBC Distribution Width SD 41.2 fl (35.1-43.9); Red Blood Count 4.01 M/mm3 (4.6-6.2); White Blood Count 14.1 K/mm3 (4.4-11.0)
[2024-07-18 08:11] LABS: AST(SGOT) 39 U/L (15-37); Alanine Aminotransfer ALT/SGPT 33 U/L (16-61); Alkaline Phosphatase 91 U/L (45-117); Anion Gap 9 (5-15); BUN 11 mg/dL (7-18); BUN/Creat Ratio 13.9 RATIO (10-20); Bilirubin, Direct 0.19 mg/dL (0.00-0.30); Calcium,Total 8.1 mg/dL (8.5-10.1); Chloride 100 mmol/L (98-107); Creatinine, Serum 0.79 mg/dL (0.70-1.30); EST Glomerular Filtration Rate 104 mL/min (>60); Est Glom Filt Rate - Afr Amer 126 mL/min (>60); Estimated Creatinine Clearance 93.25 ml/min; Globulin 3.7 g/dL (2.2-4.2); Glucose 178 mg/dL (74-106); Potassium 2.8 mmol/L (3.5-5.1); Protein, Total 5.7 g/dL (6.4-8.2); Sodium Level 137 mmol/L (136-145)
[2024-07-18] MEDS: Thiamine Hydrochloride 100 MG Tablet PO (08:46)
[2024-07-18] MEDS: Folic Acid 1 MG Tablet PO (08:46)
[2024-07-18 10:06] LABS: Phosphorus 1.9 mg/dL (2.5-4.9)
[2024-07-18] MEDS: Spironolactone 25 MG Tablet PO ×2 (10:25→21:39)
[2024-07-18] MEDS: Furosemide 40 MG/4 ML Vial IV (10:27)
[2024-07-18] MEDS: Metoprolol Tartrate 25 MG Tablet PO ×2 (10:44→21:39)
[2024-07-18] MEDS: Enoxaparin 40 MG/0.4 ML Syringe SC (10:45)
[2024-07-18] MEDS: Na Biphos/Potassium Phosphate PACKET 1 PACKET PO ×3 (10:45→21:39)
[2024-07-18] MEDS: Pantoprazole Sodium 40 MG in 0.9% Normal Saline (100mL MB+) 100 ML 330 MG IV ×2 (10:59→21:39)
--- NOTE | 2024-07-18 11:51 | ECHOD_ITS ---
Reason For Study: SOB Procedure This was a 2D Doppler, Color Flow transthoracic echocardiogram. Exam performed portable in patient room. Left Ventricle Normal LV size. Left ventricular systolic function is normal. The left ventricular ejection fraction is 60 %. No regional wall motion abnormalities noted. Right Ventricle Normal RV size. Normal systolic function. Atria Normal left atrium. Normal right atrium. Mitral Valve Normal mitral valve. Tricuspid Valve Normal tricuspid valve. Aortic Valve Trisinus/trileaflet aortic valve. Great Vessels Normal aortic root. The pulmonary artery is normal size. Inferior vena cava collapse with respiration. Pericardium/Pleural No pericardial effusion. MMode/2D Measurements & Calculations LVIDd: 4.3 cm IVSd: 1.1 cm Ao root diam: 3.4 cm LVIDs: 2.7 cm LVPWd: 0.91 cm RVDd: 3.4 cm FS: 35.9 % LAV(MOD-bp): 35.8 ml LVAd ap4: 20.8 cm2 SV(MOD-sp4): 37.2 ml LAV(MOD-bp) Indexed: 18.5 ml/m2 LVLd ap4: 7.4 cm SI(MOD-sp4): 19.2 ml/m2 LAV(MOD-sp2): 35.1 ml EDV(MOD-sp4): 51.7 ml LAV(MOD-sp4): 32.2 ml EDV(sp4-el): 49.8 ml LVAs ap4: 9.3 cm2 LVLs ap4: 6.0 cm ESV(MOD-sp4): 14.5 ml ESV(sp4-el): 12.2 ml EF(MOD-sp4): 72.0 % EF(sp4-el): 75.5 % SV(sp4-el): 37.6 ml LA dimension(2D): 4.2 cm LA A4 area: 14.8 cm2 RA A4 area: 12.3 cm2 TAPSE: 2.2 cm Time Measurements MV dec time: 0.25 sec Doppler Measurements & Calculations MV E max tai: 77.1 cm/sec Lat Peak E' Tai: 12.1 cm/sec Med Peak E' Tai: 9.4 cm/sec MV A max tai: 103.1 cm/sec E/E' lat: 6.4 E/E' med: 8.2 MV E/A: 0.75 MV V2 max: 115.5 cm/sec MV P1/2t max tai: 77.3 cm/sec Ao V2 max: 157.6 cm/sec MV max P.3 mmHg MV P1/2t: 99.7 msec Ao max P.9 mmHg MV V2 mean: 55.8 cm/sec MV mean P.5 mmHg MV dec slope: 227.0 cm/sec2 MV V2 VTI: 25.8 cm MVA(P1/2t): 2.2 cm2 LV V1 max: 158.6 cm/sec PA V2 max: 127.5 cm/sec LV V1 max P.1 mmHg ECHO/Echo Complete Interpretation Summary Normal LV size. Left ventricular systolic function is normal. The left ventricular ejection fraction is 60 %. Structurally normal valves. Ordering Physician: Walter Bazzi Performed By: Raul Wild RCS
--- NOTE | 2024-07-18 12:54 | PN.HOSP_ITS ---
Reason for Visit Reason for Visit: Diagnoses Obesity, class 1 (07/13/24) Acidosis, unspecified (07/13/24) Hypokalemia (07/13/24) Alcohol abuse, uncomplicated (07/13/24) Hypotension, unspecified (07/13/24) Alcohol induced acute pancreatitis without necrosis or infection (07/13/24) Objective Data Objective Data Vital Signs: Vital Signs Temp Pulse Resp BP Pulse Ox O2 Del Method O2 Flow Rate 98.1 F 94 18 117/87 H 94 Nasal Cannula 2 07/18/24 08:36 07/18/24 10:44 07/18/24 08:36 07/18/24 08:36 07/18/24 10:24 07/18/24 08:41 07/18/24 10:24 FiO2 40 07/17/24 17:00 Oxygen Flow Rate (L/min) 2 Oxygen Delivery Method Nasal Cannula Weight: 196 lb 10.437 oz Body Mass Index (BMI) 32.8 Intake & Output: Intake and Output for Last 24 Hours 07/16/24 07/17/24 07/18/24 23:59 23:59 23:59 Intake Total 3283.33 / 3283.33 410 / 410 310 / 310 Output Total 550 / 550 700 / 700 Balance 2733.33 / 2733.33 -290 / -290 310 / 310 Lab / Micro Data 07/18/24 06:26 07/18/24 06:26 Labs: Laboratory Results - last 24 hr 07/17/24 12:26: Sodium 137, Potassium 3.6, Chloride 107, Carbon Dioxide 25.0, Anion Gap 5, BUN 11, Creatinine 0.72, Estim Creat Clear Calc 93.19, Est GFR (MDRD) Af Amer 141, Est GFR (MDRD) Non-Af 116, BUN/Creatinine Ratio 15.3, G lucose 186 H, Calcium 8.0 L, Total Bilirubin 0.60, Direct Bilirubin 0.22, AST 24, ALT 26, Alkaline Phosphatase 77, Total Protein 5.8 L, Albumin 2.1 L, Globulin 3.7 07/18/24 06:26: WBC 14.1 H, RBC 4.01 L, Hgb 11.8 L, Hct 35.1 L, MCV 87.5, MCH 29.4, MCHC 33.6, RDW Std Deviation 41.2, RDW Coeff of Vic 12.9, Plt Count 259, MPV 10.7, Immature Gran % (Auto) 1.600 H, Neut % (Auto) 81.9 H, Lymph % (Auto) 5.3 L, [place] % (Auto) 8.7, Eos % (Auto) 2.1, Baso % (Auto) 0.4, Absolute Neuts (auto) 11.5 H, Absolute Lymphs (auto) 0.74 L, Nucleated RBC % 0.1, Sodium 137, P otassium 2.8 L, Chloride 100, Carbon Dioxide 29.0, Anion Gap 9, BUN 11, Creatinine 0.79, Estim Creat Clear Calc 93.25, Est GFR (MDRD) Af Amer 126, Est GFR (MDRD) Non-Af 104, BUN/Creatinine Ratio 13.9, Glucose 178 H, Calcium 8.1 L, Total Bilirubin 0.60, Direct Bilirubin 0.19, AST 39 H, ALT 33, Alkaline Phosphatase 91, Total Protein 5.7 L, Albumin 2.0 L, Globulin 3.7 07/18/24 09:52: Phosphorus 1.9 L Radiography Diagnostic Testing: Radiology Impression Chest X-Ray 07/17/24 12:55 IMPRESSION: Lower lung edema or pneumonia and pleural effusions. Electronically Signed: Anil Lemus MD at 11:51 EST , Physical Exam Narrative Seen and examined. Complain of mild left upper quadrant oral pain 2-3/10 intensity, otherwise much improved. Shortness of breath is better compared to yesterday. No cough cold or other URI symptoms. No chest pain.. Denies history of smoking/COPD/emphysema. Requires 2 L of oxygen. Physical exam General: Alert, Oriented x3, Cooperative HEENT: Atraumatic, PERRLA, EOMI, Normocephalic Oral: Oral mucosa dry no Gingival or Mucosal Lesions/ Ulcerations Neck: Supple, No JVD, Negative Carotid Bruits Chest wall/Lungs: Air entry diminished in bilateral lung bases. Mild expiratory wheezing much better compared to yesterday. Cardiovascular: Regular rate, Regular Rhythm, Normal S1, Normal S2, No M/G/R Abdomen: Bowel Sounds sluggish. No tenderness present in epigastric/RUQ. Mild distended. : No dysuria. No renal angle tenderness. No suprapubic tenderness. Extremities: No edema, Capillary Refill Less than 3 Seconds Skin: No rashes, No breakdown Musculoskeletal: No Tenderness to Palpation of Joints or Extremities. ROM intact Neurological: Cranial nerves II-XII grossly intact, DTR 2+/4. No acute focal neurological deficit. Psych/Mental Status: Flat affect Assessment & Plan Assessment/Plan (1) Acute alcoholic pancreatitis: QUALIFIERS: Acute pancreatitis complication: no infection or necrosis Qualified Code(s): K85.20 - Alcohol induced acute pancreatitis without necrosis or infection (2) Acidosis, lactic: (3) Severe hypotension: (4) Chronic alcohol abuse: (5) Hypokalemia: (6) Obesity (BMI 30.0-34.9): PLAN: Plan 64-year-old gentleman admitted with severe abdominal pain, increased lipase and CT findings suggestive of acute pancreatitis. He has been drinking alcohol since age of 13 always beer, denies drinking hard liquor including vodka, rum or whiskey or thom. He said he had cut down and has been drinking 1 or 2 beers when he goes out for dinner probably 3 times a week. Denies other substance use. 1. Acute alcoholic pancreatitis complicated with acute on chronic alcoholic hepatitis: serum lipase greater than 5,000 U/L along with confirmatory CT evidence of Acute Pancreatitis likely due to Chronic EtOH Abuse with AST 186 U/L and ALT 82 U/L with alkaline phosphatase 90 U/L -: Admitted to ICU. Afebrile. Keep strict NPO. Pantoprazole IV. CIWA monitoring. Phenobarbital discontinued as it has hepatotoxic effect and patient transaminases are elevated. Lactic acidosis probably from acute pancreatitis 07/15: Patient is still tachycardic 129/min, tachypneic 46/min. BUNs/creatinine 22/1.25. Continue IV fluid normal saline plus KCl at 200 mL/h. 07/16: BUN/creatinine ratio 21, BUN 21, creatinine 1.0. IV fluid NS plus KCl decreased to 150 mL/h Close present: Abdominal pain is much improved almost resolved. Fluid overload: 07/17: IV fluid discontinued. Patient mild tachycardia, hypoxic and short of breath. IV Lasix 40 mg ordered as patient received significant IV fluid because of alcoholic pancreatitis. Chest x-ray PA and lateral reviewed and shows hypoventilation and increased venous engorgement. Lasix 40 mg IV ordered. Advised routine 2D echo as an outpatient being weekend and is not urgent. 07/18: Chest x-ray report states lower lung edema or pneumonia or pleural effusion but on my review it more looks left lung atelectasis and mild pulmonary edema. Patient clinically does not have symptoms of pneumonia including cough, tachypnea or fever. 2D echo ordered for tomorrow AM. Lasix 40 mg IV changed to oral from tomorrow a.m. Continue incentive spirometry and PEP for 1 week 2. Acute alcohol withdrawal syndrome with possible acute on chronic alcoholic hepatitis: AST more than ALT but improving. Total bili normal. ALP normal. 07/15: Liver chemistry shows normal ALT and AST. GGT elevated 139 suggestive of chronic alcohol use. Alkaline phosphatase normal. Hypoalbuminemia. TB normal. Chest patient having tachycardia tachypnea and features of acute alcohol withdrawal therefore started on phenobarbital based order set along with other adjunctive medications gabapentin, Bentyl, Vistaril, clonidine, as needed for alcohol withdrawal symptom control. Patient is on thiamine and folate acid. Dose of hydroxyzine and gabapentin decreased. CIWA monitor. lean manager 180 consulted. 07/16: Liver chemistry shows normal transaminases and alkaline phosphatase but total bilirubin went up 0.8-1.2 probably after starting phenobarbital. Phenobarbital dose decreased but patient needs as controlling withdrawal symptoms well. Transfer to [facility] [place] [place] floor. 07/17: Liver chemistry shows normal. 07/18: Liver chemistry shows increase in AST to 39 which were normal before therefore phenobarbital discontinued. Alcohol withdrawal has resolved therefore does not need Ativan or phenobarbital which are hepatotoxic. Discussed in detail with patient's partner/significant other and his sister. Advised alcohol cessation. 3. Severe hypotension in the 90/60 mmHg range with Lactic Acidosis of 4.3 mmol/L present on admission: Blood pressure is recorded 142/93. Lactic acid improved from 4.3-2.8 07/15: Hypotension has resolved. 4. Hypokalemia of 3 mmol/L present on admission compounding #1 & #2 - Give supplemental IV KCl and then recheck level in the AM to ensure repletion. 07/15: Hypokalemia is resolved 4. Obesity; with BMI of 32.7 this admission - Weight loss will be recommended. T 07/17: TSH normal. 5. Essential hypertension; on amlodipine and lisinopril-HCTZ - Hold scheduled antihypertensives in light of #2. 6. Hyperlipidemia; on simvastatin - Restart simvastatin when patient is able to tolerate oral intake. Check Lipid Profile in light of #1. 7. Neuropathy; on gabapentin - Resume gabapentin when patient is cleared for oral intake. 8. History of diverticulosis - Noted on CT this admission with no signs of diverticulitis. 9. GERD; on omeprazole -on PPI 10. OA; with history of Right TKR on prn tramadol - Noted. Hold tramadol for now. 11. DVT prophylaxis - Lovenox 40 mg sq daily plus SCD's. 07/18: Anticipate discharge tomorrow: Clinical Impression(s) from Imaging Studies Abdomen/Pelvis CT 07/13/24 21:53 IMPRESSION: 1. Findings most consistent with acute pancreatitis. Follow-up as clinically necessary. 2. Colonic diverticulosis without evidence of acute diverticulitis. Charges/Coding Visit Charges Inpatient E&M: 64764 Subs Hosp L2
[2024-07-18] MEDS: Furosemide 40 MG Tablet PO (17:17)
[2024-07-18] MEDS: 0.9% Saline Lock 10 ML Syringe IV (21:40)
[2024-07-19] VITALS (10 sets, daily range): BP systolic 131–149; BP diastolic 75–89; PULSE 88–106; RESP 12–27; TEMP 36.4–36.8; O2SAT 84–97; BMI 31.9
[2024-07-19 06:36] LABS: Absolute Lymphocyte Count 0.93 X10^3/uL (0.83-4.51); Absolute Neutrophil Count 14.7 X10^3/uL (2.0-7.7); Basophil# 0.06 X10^3/uL; Basophil% 0.3 % (0-1); Eosinophils% 1.1 % (0-5); Hematocrit 36.6 % (40-54); Hemoglobin 12.3 g/dL (13.0-16.5); Lymphocyte # 0.93 X10^3/ul (0.83-4.51); Lymphocyte % 5.2 % (19-41); Mean Corp Hgb Conc 33.6 g/dL (32-36); Mean Corpuscular Hgb 29.1 pg (27.0-32.0); Mean Corpuscular Volume 86.5 fL (80-94); Mean Platelet Vol. 10.3 fl (6.2-12.0); Monocyte# 1.46 X10^3/uL; Monocyte% 8.2 % (0-10); NRBC Flagged by Analyzer 0 % (0-5); Neutrophil # 14.72 X10^3/uL (2.7-7.7); Neutrophil % 82.7 % (47-70); Platelet Count 265 K/mm3 (150-450); RBC Distribution Width CV 12.8 % (11.6-14.6); RBC Distribution Width SD 40.7 fl (35.1-43.9); Red Blood Count 4.23 M/mm3 (4.6-6.2); White Blood Count 17.8 K/mm3 (4.4-11.0)
[2024-07-19] MEDS: Na Biphos/Potassium Phosphate PACKET 1 PACKET PO ×3 (06:50→21:28)
[2024-07-19 07:23] LABS: AST(SGOT) 38 U/L (15-37); Alanine Aminotransfer ALT/SGPT 35 U/L (16-61); Albumin, Serum 1.9 g/dL (3.2-5.0); Alkaline Phosphatase 128 U/L (45-117); Anion Gap 8 (5-15); BUN 9 mg/dL (7-18); BUN/Creat Ratio 11.2 RATIO (10-20); Bilirubin, Direct 0.17 mg/dL (0.00-0.30); Calcium,Total 8.5 mg/dL (8.5-10.1); Chloride 96 mmol/L (98-107); Creatinine, Serum 0.81 mg/dL (0.70-1.30); EST Glomerular Filtration Rate 102 mL/min (>60); Est Glom Filt Rate - Afr Amer 123 mL/min (>60); Estimated Creatinine Clearance 90.93 ml/min; Globulin 3.9 g/dL (2.2-4.2); Glucose 215 mg/dL (74-106); Potassium 2.8 mmol/L (3.5-5.1); Protein, Total 5.8 g/dL (6.4-8.2); Sodium Level 136 mmol/L (136-145)
[2024-07-19 07:25] LABS: Phosphorus 2.3 mg/dL (2.5-4.9)
[2024-07-19] MEDS: Furosemide 40 MG Tablet PO ×2 (08:26→17:09)
[2024-07-19] MEDS: Metoprolol Tartrate 25 MG Tablet PO ×2 (08:26→21:29)
[2024-07-19] MEDS: Folic Acid 1 MG Tablet PO (08:27)
[2024-07-19] MEDS: Senna Tablet 2 TABLET PO (08:27)
[2024-07-19] MEDS: Thiamine Hydrochloride 100 MG Tablet PO (08:27)
[2024-07-19] MEDS: Enoxaparin 40 MG/0.4 ML Syringe SC (08:27)
--- NOTE | 2024-07-19 09:01 | PN.HOSP_ITS ---
Reason for Visit Reason for Visit: Diagnoses Obesity, class 1 (07/13/24) Acidosis, unspecified (07/13/24) Hypokalemia (07/13/24) Alcohol abuse, uncomplicated (07/13/24) Hypotension, unspecified (07/13/24) Alcohol induced acute pancreatitis without necrosis or infection (07/13/24) Subjective Subjective No abdominal pain. Objective Data Objective Data Vital Signs: Vital Signs Temp Pulse Resp BP Pulse Ox O2 Del Method O2 Flow Rate 36.8 C 104 H 18 131/75 H 96 Nasal Cannula 3 07/19/24 08:23 07/19/24 08:26 07/19/24 08:23 07/19/24 08:23 07/19/24 08:23 07/19/24 08:29 07/19/24 08:29 FiO2 40 07/17/24 17:00 Oxygen Flow Rate (L/min) 3 Oxygen Delivery Method Nasal Cannula Weight: 86.9 kg Body Mass Index (BMI) 31.9 Intake & Output: Intake and Output for Last 24 Hours 07/17/24 07/18/24 07/19/24 23:59 23:59 23:59 Intake Total 410 / 410 530 / 1030 800 / 800 Output Total 700 / 700 2700 / 3000 300 / 300 Balance -290 / -290 -2170 / -1970 500 / 500 Lab / Micro Data 07/19/24 06:29 07/19/24 06:29 Labs: Laboratory Results - last 24 hr 07/18/24 09:52: Phosphorus 1.9 L 07/19/24 06:29: WBC 17.8 H, RBC 4.23 L, Hgb 12.3 L, Hct 36.6 L, MCV 86.5, MCH 29.1, MCHC 33.6, RDW Std Deviation 40.7, RDW Coeff of Vic 12.8, Plt Count 265, MPV 10.3, Immature Gran % (Auto) 2.500 H, Neut % (Auto) 82.7 H, Lymph % (Auto) 5.2 L, [place] % (Auto) 8.2, Eos % (Auto) 1.1, Baso % (Auto) 0.3, Absolute Neuts (auto) 14.7 H, Absolute Lymphs (auto) 0.93, Nucleated RBC % 0, Sodium 136, P otassium 2.8 L, Chloride 96 L, Carbon Dioxide 31.0, Anion Gap 8, BUN 9, Creatinine 0.81, Estim Creat Clear Calc 90.93, Est GFR (MDRD) Af Amer 123, Est GFR (MDRD) Non-Af 102, BUN/Creatinine Ratio 11.2, Glucose 215 H, Calcium 8.5, P hosphorus 2.3 L, Total Bilirubin 0.50, Direct Bilirubin 0.17, AST 38 H, ALT 35, Alkaline Phosphatase 128 H, Total Protein 5.8 L, Albumin 1.9 L, Globulin 3.9 Radiography Diagnostic Testing: Radiology Impression Chest X-Ray 07/17/24 12:55 IMPRESSION: Lower lung edema or pneumonia and pleural effusions. Electronically Signed: Anil Lemus MD at 11:51 EST , Physical Exam Const alert and no apparent distress HEENT head/scalp atraumatic and moist oral mucous membranes Resp normal respiratory effort, no retractions, no use of accessory muscles and clear to auscultation bilaterally Cardio regular rate, regular rhythm, S1 normal heart sound and S2 normal heart sound GI normal to inspection, nondistended, normoactive bowel sounds, soft to palpation, non-tender and non-distended Extremity normal to inspection Assessment & Plan Assessment/Plan (1) Acute alcoholic pancreatitis: QUALIFIERS: Acute pancreatitis complication: no infection or necrosis Qualified Code(s): K85.20 - Alcohol induced acute pancreatitis without necrosis or infection (2) Acidosis, lactic: (3) Severe hypotension: (4) Chronic alcohol abuse: (5) Hypokalemia: (6) Obesity (BMI 30.0-34.9): PLAN: Plan Acute alcoholic pancreatitis * now on transitional diet * strongly encouraged to avoid alcohol Acute alcohol withdrawal syndrome * phenobarbital discontinued * thiamine and folate Acute HFpEF * EF 60% * on furosemide. * wean oxygen as tolerated. Chronic conditions: * obesity class I: Weight loss will be recommended. * Essential hypertension; on amlodipine and lisinopril-HCTZ * Hyperlipidemia; on simvastatin - Restart simvastatin when patient is able to tolerate oral intake. * Neuropathy; on gabapentin - Resume gabapentin when patient is cleared for oral intake. * History of diverticulosis - Noted on CT this admission with no signs of diverticulitis. * GERD; on omeprazole -on PPI * OA; with history of Right TKR on prn tramadol - Noted. Hold tramadol for now. DVT prophylaxis - Lovenox 40 mg sq daily plus SCD's. Charges/Coding Visit Charges Inpatient E&M: 42999 Subs Hosp L2
[2024-07-19] MEDS: 0.9% Saline Lock 10 ML Syringe IV (09:50)
--- NOTE | 2024-07-19 10:43 | RAD_ITS ---
STUDY: X-RAY - ABDOMEN/PELVIS REASON FOR EXAM: Male, 64 years old. Left-sided abdominal pain. TECHNIQUE: Single AP view of the abdomen / pelvis. COMPARISON: None. FINDINGS: There is an unremarkable bowel gas pattern. The visualized liver, spleen and kidneys are grossly normal in size and morphology. Normal soft tissue structures. There are degenerative changes of the visualized lumbar spine. RAD/Abdomen Single View (Portable) IMPRESSION: Nonspecific bowel gas pattern. Electronically Signed: Jim Burks MD at 12:14 EST ,
[2024-07-19] MEDS: Potassium Chloride Oral Tablet 20 MEQ 60 MEQ PO (12:01)
[2024-07-20] VITALS (10 sets, daily range): BP systolic 120–146; BP diastolic 75–84; PULSE 91–108; RESP 18; TEMP 36.6–37.7; O2SAT 87–97; BMI 31.5
[2024-07-20] MEDS: Na Biphos/Potassium Phosphate PACKET 1 PACKET PO ×2 (06:18→13:44)
[2024-07-20] MEDS: Metoprolol Tartrate 25 MG Tablet PO ×2 (07:43→21:25)
[2024-07-20] MEDS: Folic Acid 1 MG Tablet PO (07:43)
[2024-07-20] MEDS: Thiamine Hydrochloride 100 MG Tablet PO (07:43)
[2024-07-20] MEDS: Furosemide 40 MG Tablet PO ×2 (07:43→17:10)
[2024-07-20] MEDS: Pantoprazole Sodium 40 MG Tablet PO (07:43)
[2024-07-20] MEDS: Enoxaparin 40 MG/0.4 ML Syringe SC (07:43)
[2024-07-20 07:55] LABS: Basophil% 0.6 % (0-1); Eosinophils% 0.6 % (0-5); Hematocrit 37.6 % (40-54); Hemoglobin 12.9 g/dL (13.0-16.5); Lymphocyte % 4.7 % (19-41); Mean Corp Hgb Conc 34.3 g/dL (32-36); Mean Corpuscular Hgb 29.4 pg (27.0-32.0); Mean Corpuscular Volume 85.6 fL (80-94); Mean Platelet Vol. 10.4 fl (6.2-12.0); Monocyte% 5.1 % (0-10); Neutrophil # 19.22 X10^3/uL (2.7-7.7); Neutrophil % 85.4 % (47-70); Platelet Count 331 K/mm3 (150-450); RBC Distribution Width CV 12.8 % (11.6-14.6); Red Blood Count 4.39 M/mm3 (4.6-6.2); White Blood Count 22.5 K/mm3 (4.4-11.0)
[2024-07-20 07:56] LABS: Absolute Lymphocyte Count 1.05 X10^3/uL (0.83-4.51); Absolute Neutrophil Count 19.2 X10^3/uL (2.0-7.7); Basophil# 0.14 X10^3/uL; Eosinophil# 0.14 X10^3/uL; Lymphocyte # 1.05 X10^3/ul (0.83-4.51); Monocyte# 1.14 X10^3/uL; NRBC Flagged by Analyzer 0 % (0-5)
[2024-07-20 08:16] LABS: Anion Gap 8 (5-15); BUN 9 mg/dL (7-18); BUN/Creat Ratio 13.6 RATIO (10-20); Calcium,Total 8.9 mg/dL (8.5-10.1); Chloride 96 mmol/L (98-107); Creatinine, Serum 0.66 mg/dL (0.70-1.30); EST Glomerular Filtration Rate 127 mL/min (>60); Est Glom Filt Rate - Afr Amer 154 mL/min (>60); Estimated Creatinine Clearance 91.55 ml/min; Glucose 218 mg/dL (74-106); Potassium 3.2 mmol/L (3.5-5.1); Sodium Level 134 mmol/L (136-145)
--- NOTE | 2024-07-20 08:47 | PN.HOSP_ITS ---
Reason for Visit Reason for Visit: Diagnoses Obesity, class 1 (07/13/24) Acidosis, unspecified (07/13/24) Hypokalemia (07/13/24) Alcohol abuse, uncomplicated (07/13/24) Hypotension, unspecified (07/13/24) Alcohol induced acute pancreatitis without necrosis or infection (07/13/24) Subjective Subjective Still short of breath and with left sided abdominal pain. Objective Data Objective Data Vital Signs: Vital Signs Temp Pulse Resp BP Pulse Ox O2 Del Method O2 Flow Rate 36.6 C 100 18 130/77 H 95 Nasal Cannula 3 07/20/24 03:20 07/20/24 07:43 07/20/24 03:20 07/20/24 03:20 07/20/24 03:20 07/20/24 07:46 07/20/24 07:46 FiO2 30 07/19/24 22:21 Oxygen Flow Rate (L/min) 3 Oxygen Delivery Method Nasal Cannula Weight: 85.9 kg Body Mass Index (BMI) 31.5 Intake & Output: Intake and Output for Last 24 Hours 07/18/24 07/19/24 07/20/24 23:59 23:59 23:59 Intake Total 530 / 1030 1100 / 1100 300 / 300 Output Total 2700 / 3000 1900 / 1900 800 / 800 Balance -2170 / -1970 -800 / -800 -500 / -500 Lab / Micro Data 07/20/24 07:39 07/20/24 07:39 Labs: Laboratory Results - last 24 hr 07/20/24 07:39: WBC 22.5 H, RBC 4.39 L, Hgb 12.9 L, Hct 37.6 L, MCV 85.6, MCH 29.4, MCHC 34.3, RDW Std Deviation 40.0, RDW Coeff of Vic 12.8, Plt Count 331, MPV 10.4, Immature Gran % (Auto) 3.600 H, Neut % (Auto) 85.4 H, Lymph % (Auto) 4.7 L, [place] % (Auto) 5.1, Eos % (Auto) 0.6, Baso % (Auto) 0.6, Absolute Neuts (auto) 19.2 H, Absolute Lymphs (auto) 1.05, Nucleated RBC % 0, Sodium 134 L, P otassium 3.2 L, Chloride 96 L, Carbon Dioxide 29.0, Anion Gap 8, BUN 9, C reatinine 0.66 L, Estim Creat Clear Calc 91.55, Est GFR (MDRD) Af Amer 154, Est GFR (MDRD) Non-Af 127, BUN/Creatinine Ratio 13.6, Glucose 218 H, Calcium 8.9 Radiography Diagnostic Testing: Radiology Impression Echocardiogram 07/18/24 11:51 Interpretation Summary Normal LV size. Left ventricular systolic function is normal. The left ventricular ejection fraction is 60 %. Structurally normal valves. Ordering Physician: Walter Bazzi Performed By: Raul Wild RCS X-Ray 07/19/24 10:43 IMPRESSION: Nonspecific bowel gas pattern. Electronically Signed: Jim Burks MD at 12:14 EST , Physical Exam Const alert and no apparent distress HEENT head/scalp atraumatic and moist oral mucous membranes Resp normal respiratory effort and no retractions Resp Narrative: diminished in bases bilatearlly. Cardio regular rate, regular rhythm, S1 normal heart sound and S2 normal heart sound GI GI Narrative: TTP over left side of abdomen with swelling w/o erythema over bilatearal flanks. Neuro Sensorium / Orientation: awake and alert Assessment & Plan Assessment/Plan (1) Acute alcoholic pancreatitis: QUALIFIERS: Acute pancreatitis complication: no infection or necrosis Qualified Code(s): K85.20 - Alcohol induced acute pancreatitis without necrosis or infection (2) Severe hypotension: (3) Hypokalemia: PLAN: Plan Acute alcoholic pancreatitis * now on transitional diet * strongly encouraged to avoid alcohol Acute alcohol withdrawal syndrome * phenobarbital discontinued * thiamine and folate Suspected Gram negative pneumonia * noted on CT. Also concerning given worsening leukocytosis. * start levofloxacin * check Ag for strep and legionella. Check SCx. * pulmonary toilet. * wean oxygen as tolerated. Acute HFpEF * EF 60% * on furosemide. * wean oxygen as tolerated. Chronic conditions: * obesity class I: Weight loss will be recommended. * Essential hypertension; on amlodipine and lisinopril-HCTZ * Hyperlipidemia; on simvastatin - Restart simvastatin when patient is able to tolerate oral intake. * Neuropathy; on gabapentin - Resume gabapentin when patient is cleared for oral intake. * History of diverticulosis - Noted on CT this admission with no signs of diverticulitis. * GERD; on omeprazole -on PPI * OA; with history of Right TKR on prn tramadol - Noted. Hold tramadol for now. DVT prophylaxis - Lovenox 40 mg sq daily plus SCD's. Charges/Coding Visit Charges Inpatient E&M: 84916 Subs Hosp L3
--- NOTE | 2024-07-20 09:37 | CT_ITS ---
STUDY: CT CHEST, ABDOMEN T PELVIS WITHOUT CONTRAST REASON FOR EXAM: Male, 64 years old. Left sided abdominal pain. dyspnea. History of pancreatitis. RADIATION DOSAGE (If Supplied By Facility): CTDIvol = ( 21.06 ) mGy, DLP = ( 1899.86 ) mGycm TECHNIQUE: Transaxial imaging was performed without the administration of intravenous contrast material. Multiplanar coronal and sagittal images were reformatted. Individualized dose optimization techniques were used for this CT. COMPARISON: Comparison is made with prior CT scan done and pelvis dated July 13, 2024. FINDINGS: CHEST There are small bilateral pleural effusions with bibasilar atelectasis and/or infiltrates worse at the right lung base. There is no demonstrated pleural abnormality. Minimal anterior pericardial thickening. Mild degree of coronary calcification. Normal mediastinum. Normal hilar regions. Normal unenhanced pulmonary arteries. There is atherosclerotic calcification of the aortic arch. There are degenerative changes of the thoracic spine. ABDOMEN Normal liver. The gallbladder is distended. Findings suggestive of a small layering gallstones along the dependent portion of the gallbladder lumen. Normal spleen. There is diffuse enlargement of the pancreas with columba-pancreatic edema suggesting acute pancreatitis. There has been progression of the inflammatory changes in the left anterior pararenal space and perinephric space with the inflammatory change and fluid. There is thickening of the right anterior pararenal fascia. Normal bilateral adrenal glands. Normal right kidney. Normal left kidney. Normal visualized stomach. Normal small intestine. Fluid and fecal material are seen in the rectosigmoid colon. Sigmoid diverticulosis. The appendix is visualized and appears normal. Normal abdominal aorta. Normal inferior vena cava. Normal retroperitoneum. Normal abdominal wall. There are degenerative changes of the visualized lumbar spine. PELVIS Distended urinary bladder. Normal visualized small intestine. Normal visualized colon. There is no pelvic fluid. There is no pelvic lymphadenopathy or mass lesion. Normal visualized pelvic arteries. CT/CT Chest, Abd, Pelvis WO Cont IMPRESSION: Progressive bilateral pleural effusions with bibasilar infiltration and/or atelectasis. Progressive inflammatory change and enlargement of the pancreas in keeping with progressive pancreatitis. Findings suggestive of small gallstones along the dependent portion of the gallbladder lumen. Electronically Signed: Jim Burks MD at 10:42 EST ,
--- NOTE | 2024-07-20 09:45 | CASEMGMT ---
Addendum entered by Caridad Barnett 07/20/24 15:12: TIFF IZQUIERDO back into pt room, pt states that his sig other will be back with HH choices in the morning. TIFF IZQUIERDO to check back at that time. Original Note: TIFF IZQUIERDO into pt room, pt sitting up in bed with sig other at bedside. Discussed with pt plan after dc. Pt sig other states pt is going to his boss's home which has an elevator. Pt has access to a FWW to borrow. Discussed having therapy at dc, pt is agreeable to this. He is aware that a list will be provided to him. Pt sig other states that he would like to take this list to Franchesca Knox which is pt boss so she can review and decide. Pt is agreeable to this. Pt denies need for text or email list to be sent to her. Her address is [address] [place] [id number]. Pt and sig other deny any further questions or homegoing needs. Plan to wean pt off of oxygen prior to dc per hospitalist.
--- NOTE | 2024-07-20 10:03 | CASEMGMT ---
A list of?providers including quality and resource use data and consistent with the patient's preferred geographic region, medical needs, and insurance network was created in [employer].? This list was provided to the pt. Alexia Zamora, Discharge Planning Asst.
[2024-07-20] MEDS: levoFLOXacin IV 750 MG/150 ML BAG 100 MG IV (12:31)
[2024-07-20] MEDS: Acetaminophen 500 MG Tablet PO (19:56)
[2024-07-20] MEDS: guaiFENesin 1,200 MG Tablet 1200 MG PO (21:25)
[2024-07-21] VITALS (13 sets, daily range): BP systolic 110–140; BP diastolic 75–91; PULSE 95–115; RESP 18–26; TEMP 36.7–38.6; O2SAT 88–97; BMI 31.5
--- NOTE | 2024-07-21 07:28 | PN.HOSP_ITS ---
Reason for Visit Reason for Visit: Diagnoses Obesity, class 1 (07/13/24) Acidosis, unspecified (07/13/24) Hypokalemia (07/13/24) Alcohol abuse, uncomplicated (07/13/24) Hypotension, unspecified (07/13/24) Alcohol induced acute pancreatitis without necrosis or infection (07/13/24) Subjective Subjective Still with sweating. Coughing up some phlegm. Objective Data Objective Data Vital Signs: Vital Signs Temp Pulse Resp BP Pulse Ox O2 Del Method O2 Flow Rate 37.6 C H 107 H 18 134/79 H 94 Nasal Cannula 2 07/21/24 05:35 07/21/24 05:35 07/21/24 05:35 07/21/24 05:35 07/21/24 05:35 07/21/24 05:35 07/21/24 05:35 FiO2 30 07/19/24 22:21 Oxygen Flow Rate (L/min) 2 Oxygen Delivery Method Nasal Cannula Weight: 85.9 kg Body Mass Index (BMI) 31.5 Intake & Output: Intake and Output for Last 24 Hours 07/19/24 07/20/24 07/21/24 23:59 23:59 23:59 Intake Total 1100 / 1100 450 / 450 500 / 500 Output Total 1900 / 1900 1400 / 1400 1100 / 1100 Balance -800 / -800 -950 / -950 -600 / -600 Lab / Micro Data 07/21/24 07:48 07/21/24 07:48 Labs: Laboratory Results - last 24 hr 07/20/24 07:39: WBC 22.5 H, RBC 4.39 L, Hgb 12.9 L, Hct 37.6 L, MCV 85.6, MCH 29.4, MCHC 34.3, RDW Std Deviation 40.0, RDW Coeff of Vic 12.8, Plt Count 331, MPV 10.4, Immature Gran % (Auto) 3.600 H, Neut % (Auto) 85.4 H, Lymph % (Auto) 4.7 L, [place] % (Auto) 5.1, Eos % (Auto) 0.6, Baso % (Auto) 0.6, Absolute Neuts (auto) 19.2 H, Absolute Lymphs (auto) 1.05, Nucleated RBC % 0, Sodium 134 L, P otassium 3.2 L, Chloride 96 L, Carbon Dioxide 29.0, Anion Gap 8, BUN 9, C reatinine 0.66 L, Estim Creat Clear Calc 91.55, Est GFR (MDRD) Af Amer 154, Est GFR (MDRD) Non-Af 127, BUN/Creatinine Ratio 13.6, Glucose 218 H, Calcium 8.9 Micro: Microbiology 07/20/24 15:45 Urine, Clean Catch Legionella Antigen - Final 07/20/24 15:45 Urine, Clean Catch Streptococcus pneumoniae Antigen (M - Final Radiography Diagnostic Testing: Radiology Impression Chest/Abdomen/Pelvis CT 07/20/24 09:37 IMPRESSION: Progressive bilateral pleural effusions with bibasilar infiltration and/or atelectasis. Progressive inflammatory change and enlargement of the pancreas in keeping with progressive pancreatitis. Findings suggestive of small gallstones along the dependent portion of the gallbladder lumen. Electronically Signed: Jim Burks MD at 10:42 EST , Physical Exam Const alert and no apparent distress Constitutional Narrative: diaphoretic. HEENT head/scalp atraumatic and moist oral mucous membranes Resp normal respiratory effort and no retractions Resp Narrative: diminished in bases. Cardio regular rate, regular rhythm, S1 normal heart sound and S2 normal heart sound GI normal to inspection, nondistended, normoactive bowel sounds, soft to palpation, non-tender and non-distended Extremity normal to inspection, full ROM and no clubbing, cyanosis or edema Assessment & Plan Assessment/Plan (1) Acute alcoholic pancreatitis: QUALIFIERS: Acute pancreatitis complication: no infection or necrosis Qualified Code(s): K85.20 - Alcohol induced acute pancreatitis without necrosis or infection (2) Severe hypotension: (3) Hypokalemia: PLAN: Plan Acute alcoholic pancreatitis * now on transitional diet * strongly encouraged to avoid alcohol Acute alcohol withdrawal syndrome * phenobarbital discontinued * thiamine and folate Suspected Gram negative pneumonia * noted on CT. Also concerning given worsening leukocytosis. * change abx from LVQ to pip/tazo and vancomycin * Ag for strep and legionella negative. Check SCx. * pulmonary toilet. * wean oxygen as tolerated. Acute HFpEF * EF 60% * on furosemide. * wean oxygen as tolerated. Chronic conditions: * obesity class I: Weight loss will be recommended. * Essential hypertension; on amlodipine and lisinopril-HCTZ * Hyperlipidemia; on simvastatin - Restart simvastatin when patient is able to tolerate oral intake. * Neuropathy; on gabapentin - Resume gabapentin when patient is cleared for oral intake. * History of diverticulosis - Noted on CT this admission with no signs of diverticulitis. * GERD; on omeprazole -on PPI * OA; with history of Right TKR on prn tramadol - Noted. Hold tramadol for now. DVT prophylaxis - Lovenox 40 mg sq daily plus SCD's. Charges/Coding Visit Charges Inpatient E&M: 03090 Subs Hosp L2
[2024-07-21] MEDS: Thiamine Hydrochloride 100 MG Tablet PO (08:00)
[2024-07-21] MEDS: Folic Acid 1 MG Tablet PO (08:00)
[2024-07-21] MEDS: Acetaminophen 500 MG Tablet PO ×2 (08:00→14:57)
[2024-07-21] MEDS: Pantoprazole Sodium 40 MG Tablet PO (08:01)
[2024-07-21] MEDS: guaiFENesin 1,200 MG Tablet 1200 MG PO ×2 (08:01→21:50)
[2024-07-21] MEDS: Enoxaparin 40 MG/0.4 ML Syringe SC (08:01)
[2024-07-21] MEDS: Metoprolol Tartrate 25 MG Tablet PO ×2 (08:01→21:49)
[2024-07-21 08:26] LABS: Absolute Lymphocyte Count 0.88 X10^3/uL (0.83-4.51); Absolute Neutrophil Count 22.4 X10^3/uL (2.0-7.7); Basophil% 0.4 % (0-1); Eosinophil# 0.03 X10^3/uL; Eosinophils% 0.1 % (0-5); Hematocrit 37.9 % (40-54); Hemoglobin 12.8 g/dL (13.0-16.5); Lymphocyte # 0.88 X10^3/ul (0.83-4.51); Lymphocyte % 3.5 % (19-41); Mean Corp Hgb Conc 33.8 g/dL (32-36); Mean Corpuscular Hgb 28.8 pg (27.0-32.0); Mean Corpuscular Volume 85.2 fL (80-94); Mean Platelet Vol. 10.8 fl (6.2-12.0); Monocyte# 1.06 X10^3/uL; Monocyte% 4.2 % (0-10); NRBC Flagged by Analyzer 0 % (0-5); Neutrophil # 22.43 X10^3/uL (2.7-7.7); Neutrophil % 89.1 % (47-70); POSITIVE DIFFERENTIAL YES; Platelet Count 394 K/mm3 (150-450); RBC Distribution Width CV 12.8 % (11.6-14.6); RBC Distribution Width SD 39.9 fl (35.1-43.9); Red Blood Count 4.45 M/mm3 (4.6-6.2); White Blood Count 25.2 K/mm3 (4.4-11.0)
[2024-07-21 08:30] LABS: Differential Indicated SCAN CRITERIA MET
[2024-07-21 09:14] LABS: Anion Gap 10 (5-15); BUN 9 mg/dL (7-18); BUN/Creat Ratio 11.6 RATIO (10-20); Calcium,Total 8.6 mg/dL (8.5-10.1); Chloride 92 mmol/L (98-107); Creatinine, Serum 0.78 mg/dL (0.70-1.30); EST Glomerular Filtration Rate 106 mL/min (>60); Est Glom Filt Rate - Afr Amer 129 mL/min (>60); Estimated Creatinine Clearance 91.55 ml/min; Glucose 284 mg/dL (74-106); Potassium 3.1 mmol/L (3.5-5.1); Sodium Level 130 mmol/L (136-145)
--- NOTE | 2024-07-21 09:44 | CASEMGMT ---
Hospitalist notified TIFF IZQUIERDO that pt sig other had questions. TIFF IZQUIERDO into pt room, pt sitting up in chair in no distress. Pt sig other states he took the HH list to his friend who is the assistant county attorney and she is requesting a meeting to discuss transitions of care or for pt to go to [facility]. Made aware that the pt insurance will approve his stay or deny for a SNF level of care. Made aware that the insurance will view the therapy notes and there is a possibility this may be denied. Pt and sig other do prefer this to be looked into with knowing this information. They deny a need for a list of other options unless [facility] is not an option. Pt sig other states that Franchesca Knox is also on the board at [facility] so they may consider this as well. Asked if Franchesca wanted a meeting if a SNF is the plan, pt sig other states no. Updated hospitalist, plan to move forward with SNF at this time. Pt is not medically ready for dc today. Updated SW.
--- NOTE | 2024-07-21 09:51 | CASEMGMT ---
Social Work- SW completed referral to TCU per request of pt. SW remains available to follow. No list desired unless TCU does not accept. IVAN Kumari
[2024-07-21] MEDS: 0.9% Saline Lock 10 ML Syringe IV ×2 (09:55→15:21)
[2024-07-21] MEDS: levoFLOXacin IV 750 MG/150 ML BAG 100 MG IV (09:55)
--- NOTE | 2024-07-21 12:07 | CASEMGMT ---
Social Work- SW met with pt and So to discuss plans at d/c. SW advised that referral to TCU completed per pt request. TCU accepted referral and began precert. SW discussed potential declination due to pt ambulation distances with therapy. SW provided private pay information. Pt would not be able to private pay and would choose to d/c home if declined precert by insurance. Pt reports no other needs at this time. SW remains available to follow. Plan: TCU; pend precert IVAN Kumari
[2024-07-21] MEDS: Potassium Chloride Oral Tablet 20 MEQ 60 MEQ PO (12:45)
[2024-07-21] MEDS: Ipratropium/Albuterol Sulfate 3 ML AMPUL.NEB INHALATION (15:06)
[2024-07-21] MEDS: Vancomycin HCl 2,000 MG in 0.9% Normal Saline (500mL Bag) 500 ML 250 MG IV (16:25)
--- NOTE | 2024-07-21 17:07 | PCM.RX.CS ---
Consult Antibiotic Management Pharmacy has been consulted to manage selected antibiotic: Vancomycin Type of Intervention Type of Consult: New start Suspected Infection Suspected Infection: Pneumonia Labs Labs: Sodium 130 mmol/L (136-145) L 07/21/24 07:48 Potassium 3.1 mmol/L (3.5-5.1) L 07/21/24 07:48 Chloride 92 mmol/L (98-107) L 07/21/24 07:48 Carbon Dioxide 28.0 mmol/L (21.0-32.0) 07/21/24 07:48 Anion Gap 10 (5-15) 07/21/24 07:48 BUN 9 mg/dL (7-18) 07/21/24 07:48 Creatinine 0.78 mg/dL (0.70-1.30) 07/21/24 07:48 Est GFR (MDRD) Af Amer 129 mL/min (>60) 07/21/24 07:48 Est GFR (MDRD) Non-Af 106 mL/min (>60) 07/21/24 07:48 BUN/Creatinine Ratio 11.6 RATIO (10-20) 07/21/24 07:48 Glucose 284 mg/dL (74-106) H 07/21/24 07:48 Microbiology Microbiology: Microbiology 07/20/24 15:45 Urine, Clean Catch Legionella Antigen - Final 07/20/24 15:45 Urine, Clean Catch Streptococcus pneumoniae Antigen (M - Final Pharmacy Plan for Drug Dosing Pharmacy Plan for Drug Dosing: NEW START IV VANCOMYCIN Consulting Physician: Randee Indication: Pneumonia Goal Trough: 15-20 mg/dL SrCr: 0.78 mg/dL CrCl: 91.5 mL/min Comments: loading dose of 2000mg given 07/21 @ 1625 Vancomycin Dose: Will start 1750mg Q12 and get a trough prior to 4th total dose per policy. Pending Level: 07/23/24 @ 0400 Pharmacy Service will continue to monitor and adjust dosing as required.
[2024-07-21] MEDS: Piperacil/Tazobactam 3.375 GM in 0.9% Normal Saline (50mL MB+) 50 ML IV (21:50)
[2024-07-22] VITALS (10 sets, daily range): BP systolic 125–132; BP diastolic 70–85; PULSE 67–101; RESP 16–18; TEMP 36.7–37.7; O2SAT 2–97; BMI 28.7
[2024-07-22] MEDS: Vancomycin HCl 1,750 MG in 0.9% Normal Saline (500mL Bag) 500 ML 250 MG IV ×2 (04:35→16:09)
[2024-07-22] MEDS: Piperacil/Tazobactam 3.375 GM in 0.9% Normal Saline (50mL MB+) 50 ML IV ×3 (06:52→21:59)
--- NOTE | 2024-07-22 07:00 | CPS ---
patient refusing chest vest
--- NOTE | 2024-07-22 08:04 | PN.HOSP_ITS ---
Reason for Visit Reason for Visit: Diagnoses Obesity, class 1 (07/13/24) Acidosis, unspecified (07/13/24) Hypokalemia (07/13/24) Alcohol abuse, uncomplicated (07/13/24) Hypotension, unspecified (07/13/24) Alcohol induced acute pancreatitis without necrosis or infection (07/13/24) Subjective Subjective Placed back on oxygen. Earlier declined the vest therapy Objective Data Objective Data Vital Signs: Vital Signs Temp Pulse Resp BP Pulse Ox O2 Del Method O2 Flow Rate 36.9 C 90 16 125/83 H 97 Nasal Cannula 2 07/22/24 04:33 07/22/24 04:33 07/22/24 04:33 07/22/24 04:33 07/22/24 04:33 07/22/24 04:33 07/22/24 04:33 FiO2 30 07/19/24 22:21 Oxygen Flow Rate (L/min) 2 Oxygen Delivery Method Nasal Cannula Weight: 78.1 kg Body Mass Index (BMI) 28.7 Intake & Output: Intake and Output for Last 24 Hours 07/20/24 07/21/24 07/22/24 23:59 23:59 23:59 Intake Total 450 / 450 1190 / 1190 585 / 585 Output Total 1400 / 1400 1950 / 1950 200 / 200 Balance -950 / -950 -760 / -760 385 / 385 Lab / Micro Data 07/22/24 08:41 07/22/24 08:41 Labs: Laboratory Results - last 24 hr 07/21/24 07:48: WBC 25.2 H, RBC 4.45 L, Hgb 12.8 L, Hct 37.9 L, MCV 85.2, MCH 28.8, MCHC 33.8, RDW Std Deviation 39.9, RDW Coeff of Vic 12.8, Plt Count 394, MPV 10.8, Immature Gran % (Auto) 2.700 H, Neut % (Auto) 89.1 H, Lymph % (Auto) 3.5 L, [place] % (Auto) 4.2, Eos % (Auto) 0.1, Baso % (Auto) 0.4, Absolute Neuts (auto) 22.4 H, Absolute Lymphs (auto) 0.88, Nucleated RBC % 0, Differential Comment COMMENT, Sodium 130 L, Potassium 3.1 L, Chloride 92 L, Carbon Dioxide 28.0, Anion Gap 10, BUN 9, Creatinine 0.78, Estim Creat Clear Calc 91.55, Est GFR (MDRD) Af Amer 129, Est GFR (MDRD) Non-Af 106, BUN/Creatinine Ratio 11.6, G lucose 284 H, Calcium 8.6 Micro: Microbiology 07/20/24 15:45 Urine, Clean Catch Legionella Antigen - Final 07/20/24 15:45 Urine, Clean Catch Streptococcus pneumoniae Antigen (M - Final Physical Exam Const no apparent distress HEENT head/scalp atraumatic and moist oral mucous membranes Resp normal respiratory effort and no retractions Resp Narrative: bibasilar crackles with tracheal breath sounds in the bases. Cardio regular rate, regular rhythm, S1 normal heart sound and S2 normal heart sound GI normal to inspection, nondistended, normoactive bowel sounds, soft to palpation, non-tender and non-distended Extremity normal to inspection and no clubbing, cyanosis or edema Neuro Sensorium / Orientation: awake and alert Assessment & Plan Assessment/Plan (1) Acute alcoholic pancreatitis: QUALIFIERS: Acute pancreatitis complication: no infection or necrosis Qualified Code(s): K85.20 - Alcohol induced acute pancreatitis without necrosis or infection (2) Severe hypotension: (3) Hypokalemia: PLAN: Plan Acute alcoholic pancreatitis * now on transitional diet * strongly encouraged to avoid alcohol Acute alcohol withdrawal syndrome * phenobarbital discontinued * thiamine and folate Suspected Gram negative pneumonia * noted on CT. Also concerning given worsening leukocytosis. * change abx from LVQ to pip/tazo and vancomycin * Ag for strep and legionella negative. Check SCx. * pulmonary toilet. * wean oxygen as tolerated. * I ordered vest therapy on 07/21. He previously declined it, now he is using it. * SCx pending. Acute HFpEF * EF 60% * on furosemide. * wean oxygen as tolerated. Chronic conditions: * obesity class I: Weight loss will be recommended. * Essential hypertension; on amlodipine and lisinopril-HCTZ * Hyperlipidemia; on simvastatin - Restart simvastatin when patient is able to tolerate oral intake. * Neuropathy; on gabapentin - Resume gabapentin when patient is cleared for oral intake. * History of diverticulosis - Noted on CT this admission with no signs of diverticulitis. * GERD; on omeprazole -on PPI * OA; with history of Right TKR on prn tramadol - Noted. Hold tramadol for now. DVT prophylaxis - Lovenox 40 mg sq daily plus SCD's. Charges/Coding Visit Charges Inpatient E&M: 17182 Subs Hosp L3
[2024-07-22 09:03] LABS: Absolute Lymphocyte Count 1.05 X10^3/uL (0.83-4.51); Basophil# 0.11 X10^3/uL; Basophil% 0.5 % (0-1); Eosinophil# 0.08 X10^3/uL; Eosinophils% 0.3 % (0-5); Hematocrit 36.2 % (40-54); Hemoglobin 12.4 g/dL (13.0-16.5); Lymphocyte # 1.05 X10^3/ul (0.83-4.51); Lymphocyte % 4.4 % (19-41); Mean Corp Hgb Conc 34.3 g/dL (32-36); Mean Corpuscular Hgb 29.3 pg (27.0-32.0); Mean Corpuscular Volume 85.6 fL (80-94); Mean Platelet Vol. 10.6 fl (6.2-12.0); Monocyte# 1.05 X10^3/uL; Monocyte% 4.4 % (0-10); NRBC Flagged by Analyzer 0 % (0-5); Neutrophil # 20.99 X10^3/uL (2.7-7.7); Neutrophil % 88.3 % (47-70); POSITIVE DIFFERENTIAL YES; Platelet Count 443 K/mm3 (150-450); RBC Distribution Width CV 13.1 % (11.6-14.6); RBC Distribution Width SD 40.7 fl (35.1-43.9); Red Blood Count 4.23 M/mm3 (4.6-6.2); White Blood Count 23.8 K/mm3 (4.4-11.0)
[2024-07-22 09:10] LABS: Differential Indicated SCAN CRITERIA MET
[2024-07-22 09:28] LABS: Differential Comment SCANNED
[2024-07-22 09:47] LABS: Anion Gap 6 (5-15); BUN 10 mg/dL (7-18); BUN/Creat Ratio 12.1 RATIO (10-20); Calcium,Total 8.7 mg/dL (8.5-10.1); Chloride 94 mmol/L (98-107); Creatinine, Serum 0.83 mg/dL (0.70-1.30); EST Glomerular Filtration Rate 99 mL/min (>60); Est Glom Filt Rate - Afr Amer 120 mL/min (>60); Estimated Creatinine Clearance 84.38 ml/min; Glucose 255 mg/dL (74-106); Potassium 3.6 mmol/L (3.5-5.1); Sodium Level 131 mmol/L (136-145)
[2024-07-22] MEDS: Thiamine Hydrochloride 100 MG Tablet PO (10:22)
[2024-07-22] MEDS: Senna Tablet 2 TABLET PO (10:22)
[2024-07-22] MEDS: guaiFENesin 1,200 MG Tablet 1200 MG PO ×2 (10:22→22:01)
[2024-07-22] MEDS: Enoxaparin 40 MG/0.4 ML Syringe SC (10:22)
[2024-07-22] MEDS: Metoprolol Tartrate 25 MG Tablet PO ×2 (10:23→22:01)
[2024-07-22] MEDS: Pantoprazole Sodium 40 MG Tablet PO (10:23)
[2024-07-22] MEDS: Folic Acid 1 MG Tablet PO (10:23)
--- NOTE | 2024-07-22 18:38 | NURSING ---
Attempted to wean off 02 while patient was laying in bed. Encouraged use of IS and Acapella. Patient consistently in the high 80's...86-87%. Replaced 2L 02. Now saturating 93%. Will continue to monitor.
--- NOTE | 2024-07-22 22:53 | CPS ---
PATIENT REFUSED PAP THERAPY FOR NIGHT TIME USE
[2024-07-23] VITALS (10 sets, daily range): BP systolic 123–142; BP diastolic 49–81; PULSE 94–110; RESP 17–18; TEMP 36.5–37.7; O2SAT 90–97
[2024-07-23 04:06] LABS: Absolute Lymphocyte Count 0.98 X10^3/uL (0.83-4.51); Absolute Neutrophil Count 16.9 X10^3/uL (2.0-7.7); Basophil# 0.08 X10^3/uL; Basophil% 0.4 % (0-1); Eosinophil# 0.11 X10^3/uL; Eosinophils% 0.6 % (0-5); Hematocrit 34.1 % (40-54); Hemoglobin 11.6 g/dL (13.0-16.5); Lymphocyte # 0.98 X10^3/ul (0.83-4.51); Mean Corpuscular Hgb 28.9 pg (27.0-32.0); Mean Platelet Vol. 10.3 fl (6.2-12.0); Monocyte# 1.03 X10^3/uL; Monocyte% 5.3 % (0-10); NRBC Flagged by Analyzer 0 % (0-5); Neutrophil # 16.91 X10^3/uL (2.7-7.7); Neutrophil % 86.6 % (47-70); Platelet Count 461 K/mm3 (150-450); RBC Distribution Width SD 40.5 fl (35.1-43.9); Red Blood Count 4.01 M/mm3 (4.6-6.2); White Blood Count 19.5 K/mm3 (4.4-11.0)
[2024-07-23 04:34] LABS: Anion Gap 7 (5-15); BUN 10 mg/dL (7-18); BUN/Creat Ratio 12.3 RATIO (10-20); Calcium,Total 8.2 mg/dL (8.5-10.1); Chloride 95 mmol/L (98-107); Creatinine, Serum 0.82 mg/dL (0.70-1.30); EST Glomerular Filtration Rate 101 mL/min (>60); Est Glom Filt Rate - Afr Amer 122 mL/min (>60); Estimated Creatinine Clearance 85.41 ml/min; Glucose 264 mg/dL (74-106); Potassium 3.2 mmol/L (3.5-5.1); Sodium Level 133 mmol/L (136-145)
[2024-07-23 04:37] LABS: Vancomycin, Trough Level 12.5 ug/mL (5.0-15.0)
--- NOTE | 2024-07-23 05:22 | PCM.RX.CS ---
Consult Antibiotic Management Pharmacy has been consulted to manage selected antibiotic: Vancomycin Type of Intervention Type of Consult: Follow-up Labs Labs: Sodium 133 mmol/L (136-145) L 07/23/24 03:58 Potassium 3.2 mmol/L (3.5-5.1) L 07/23/24 03:58 Chloride 95 mmol/L (98-107) L 07/23/24 03:58 Carbon Dioxide 31.0 mmol/L (21.0-32.0) 07/23/24 03:58 Anion Gap 7 (5-15) 07/23/24 03:58 BUN 10 mg/dL (7-18) 07/23/24 03:58 Creatinine 0.82 mg/dL (0.70-1.30) 07/23/24 03:58 Est GFR (MDRD) Af Amer 122 mL/min (>60) 07/23/24 03:58 Est GFR (MDRD) Non-Af 101 mL/min (>60) 07/23/24 03:58 BUN/Creatinine Ratio 12.3 RATIO (10-20) 07/23/24 03:58 Glucose 264 mg/dL (74-106) H 07/23/24 03:58 Vancomycin Trough 12.5 ug/mL (5.0-15.0) 07/23/24 03:58 Microbiology Microbiology: Microbiology 07/20/24 15:45 Urine, Clean Catch Legionella Antigen - Final 07/20/24 15:45 Urine, Clean Catch Streptococcus pneumoniae Antigen (M - Final Pharmacy Plan for Drug Dosing Pharmacy Plan for Drug Dosing: Pharmacy Service will continue to monitor and adjust dosing as required. TROUGH 12.5 @ 12 HOURS. INCREASE TO 2000MG Q12H AND FOLLOW UP TROUGH PRIOR TO 4TH DOSE Follow-Up Labs Follow-Up Labs: Trough: Vancomycin Date/Time Labs Ordered Labs to be done on [date and time ordered]: 07/24 @ 2510
[2024-07-23] MEDS: Piperacil/Tazobactam 3.375 GM in 0.9% Normal Saline (50mL MB+) 50 ML IV ×3 (05:31→22:43)
[2024-07-23] MEDS: Vancomycin HCl 2,000 MG in 0.9% Normal Saline (500mL Bag) 500 ML 250 MG IV ×2 (05:31→17:21)
--- NOTE | 2024-07-23 07:41 | PN.HOSP_ITS ---
Reason for Visit Reason for Visit: Diagnoses Obesity, class 1 (07/13/24) Acidosis, unspecified (07/13/24) Hypokalemia (07/13/24) Alcohol abuse, uncomplicated (07/13/24) Hypotension, unspecified (07/13/24) Alcohol induced acute pancreatitis without necrosis or infection (07/13/24) Subjective Subjective No productive phlegm production. Objective Data Objective Data Vital Signs: Vital Signs Temp Pulse Resp BP Pulse Ox O2 Del Method O2 Flow Rate 37.4 C H 94 18 136/81 H 95 Nasal Cannula 2 07/23/24 03:08 07/23/24 03:08 07/23/24 03:08 07/23/24 03:08 07/23/24 03:08 07/23/24 03:33 07/23/24 03:33 FiO2 30 07/19/24 22:21 Oxygen Flow Rate (L/min) 2 Oxygen Delivery Method Nasal Cannula Weight: 81.9 kg Body Mass Index (BMI) 30.0 Intake & Output: Intake and Output for Last 24 Hours 07/21/24 07/22/24 07/23/24 23:59 23:59 23:59 Intake Total 1190 / 1190 1920 / 1920 50 / 50 Output Total 1950 / 1950 200 / 200 550 / 550 Balance -760 / -760 1720 / 1720 -500 / -500 Lab / Micro Data 07/23/24 03:58 07/23/24 03:58 Labs: Laboratory Results - last 24 hr 07/22/24 08:41: WBC 23.8 H, RBC 4.23 L, Hgb 12.4 L, Hct 36.2 L, MCV 85.6, MCH 29.3, MCHC 34.3, RDW Std Deviation 40.7, RDW Coeff of Vic 13.1, Plt Count 443, MPV 10.6, Immature Gran % (Auto) 2.100 H, Neut % (Auto) 88.3 H, Lymph % (Auto) 4.4 L, [place] % (Auto) 4.4, Eos % (Auto) 0.3, Baso % (Auto) 0.5, Absolute Neuts (auto) 21.0 H, Absolute Lymphs (auto) 1.05, Nucleated RBC % 0, Differential Comment SCANNED, Sodium 131 L, Potassium 3.6, Chloride 94 L, Carbon Dioxide 31.0, Anion Gap 6, BUN 10, Creatinine 0.83, Estim Creat Clear Calc 84.38, Est GFR (MDRD) Af Amer 120, Est GFR (MDRD) Non-Af 99, BUN/Creatinine Ratio 12.1, G lucose 255 H, Calcium 8.7 07/23/24 03:58: WBC 19.5 H, RBC 4.01 L, Hgb 11.6 L, Hct 34.1 L, MCV 85.0, MCH 28.9, MCHC 34.0, RDW Std Deviation 40.5, RDW Coeff of Vic 13.0, Plt Count 461 H, MPV 10.3, Immature Gran % (Auto) 2.100 H, Neut % (Auto) 86.6 H, Lymph % (Auto) 5.0 L, [place] % (Auto) 5.3, Eos % (Auto) 0.6, Baso % (Auto) 0.4, Absolute Neuts (auto) 16.9 H, Absolute Lymphs (auto) 0.98, Nucleated RBC % 0, Sodium 133 L, P otassium 3.2 L, Chloride 95 L, Carbon Dioxide 31.0, Anion Gap 7, BUN 10, Creatinine 0.82, Estim Creat Clear Calc 85.41, Est GFR (MDRD) Af Amer 122, Est GFR (MDRD) Non-Af 101, BUN/Creatinine Ratio 12.3, Glucose 264 H, Calcium 8.2 L, Vancomycin Trough 12.5 Micro: Microbiology 07/20/24 15:45 Urine, Clean Catch Legionella Antigen - Final 07/20/24 15:45 Urine, Clean Catch Streptococcus pneumoniae Antigen (M - Final Physical Exam Const alert and no apparent distress HEENT head/scalp atraumatic and moist oral mucous membranes Resp normal respiratory effort and no retractions Resp Narrative: dimininished in bases bilaterally, but overall improved aeration. Cardio regular rate, regular rhythm, S1 normal heart sound and S2 normal heart sound GI normal to inspection, nondistended, normoactive bowel sounds, soft to palpation, non-tender and non-distended Extremity normal to inspection and full ROM Neuro Sensorium / Orientation: awake and alert Assessment & Plan Assessment/Plan (1) Acute alcoholic pancreatitis: QUALIFIERS: Acute pancreatitis complication: no infection or necrosis Qualified Code(s): K85.20 - Alcohol induced acute pancreatitis without necrosis or infection (2) Severe hypotension: (3) Hypokalemia: PLAN: Plan Acute alcoholic pancreatitis * now on transitional diet * strongly encouraged to avoid alcohol Acute alcohol withdrawal syndrome * resolved and phenobarbital discontinued * thiamine and folate Suspected Gram negative pneumonia * noted on CT. Also concerning given worsening leukocytosis. * change abx from LVQ to pip/tazo and vancomycin * Ag for strep and legionella negative. Check SCx. * pulmonary toilet including vest therapy. * SCx pending. Acute HFpEF * EF 60% * on furosemide. * wean oxygen as tolerated. Hypokalemia * 2/2 diuresis * replace DM2 * not previously diagnosed, but glucose has been elevated on BMPs * check A1c. start SSI Chronic conditions: * obesity class I: Weight loss will be recommended. * Essential hypertension; on amlodipine and lisinopril-HCTZ * Hyperlipidemia; on simvastatin - Restart simvastatin when patient is able to tolerate oral intake. * Neuropathy; on gabapentin - Resume gabapentin when patient is cleared for oral intake. * History of diverticulosis - Noted on CT this admission with no signs of diverticulitis. * GERD; on omeprazole -on PPI * OA; with history of Right TKR on prn tramadol - Noted. Hold tramadol for now. DVT prophylaxis - Lovenox 40 mg sq daily plus SCD's. Charges/Coding Visit Charges Inpatient E&M: 28264 Subs Hosp L2
[2024-07-23] MEDS: Potassium Chloride Oral Tablet 20 MEQ 40 MEQ PO (08:44)
[2024-07-23] MEDS: Metoprolol Tartrate 25 MG Tablet PO ×2 (08:45→22:41)
[2024-07-23] MEDS: Thiamine Hydrochloride 100 MG Tablet PO (08:45)
[2024-07-23] MEDS: Folic Acid 1 MG Tablet PO (08:45)
[2024-07-23] MEDS: Enoxaparin 40 MG/0.4 ML Syringe SC (08:46)
[2024-07-23] MEDS: guaiFENesin 1,200 MG Tablet 1200 MG PO ×2 (08:46→22:41)
[2024-07-23] MEDS: Pantoprazole Sodium 40 MG Tablet PO (08:46)
[2024-07-23 09:36] LABS: Hemoglobin A1c 7.9 % (3.8-5.6)
--- NOTE | 2024-07-23 10:42 | CASEMGMT ---
Social Work- Pt declined by insurance; peer to peer offered. Pt was noted to ambulate 340' with no assistive devices. Physician declined to complete peer to peer. Pt updated. Pt declines [facility]. RNCM updated. IVAN Kumari
[2024-07-23 11:38] LABS: Bedside Glucose 312 mg/dL (74-106)
--- NOTE | 2024-07-23 11:38 | CASEMGMT ---
SW made TIFF IZQUIERDO aware that pt was denied for SNF LOC. TIFF IZQUIERDO into pt room, pt sitting up in bed on oxygen. Pt made aware. Pt states he figured that this would be the case. He states that he is all set up at home. He still plans to recover at his boss's home as he did when he had knee surgery. He states he has DME and many people who can assist. Pt denies need for HHC at this time. Green sheet on chart for oxygen, plan for pt to dc tomorrow.
[2024-07-23] MEDS: Insulin Lispro 100 UNIT/ML INSULN.PEN SC ×3 (12:11→22:41)
[2024-07-23] MEDS: 0.9% Saline Lock 10 ML Syringe IV (13:10)
[2024-07-23] MEDS: Acetaminophen 500 MG Tablet PO ×2 (13:17→20:04)
[2024-07-23 16:15] LABS: Hemoglobin A1c 7.9 % (3.8-5.6)
[2024-07-23 16:50] LABS: Bedside Glucose 347 mg/dL (74-106)
--- NOTE | 2024-07-23 17:00 | RAD_ITS ---
STUDY: X-RAY - ABDOMEN/PELVIS REASON FOR EXAM: Male, 64 years old. abdominal pain. TECHNIQUE: Single AP view of the abdomen / pelvis. COMPARISON: 07/19/2024. FINDINGS: Normal visualized lung bases. There is an unremarkable bowel gas pattern. There is no demonstrated free abdominal air. The visualized liver, spleen and kidneys are grossly normal in size and morphology. Normal soft tissue structures. Normal visualized osseous structures. RAD/Abdomen Single View IMPRESSION: No definite acute or significant abnormality seen. Electronically Signed: Clifton Valerio MD at 18:18 EST ,
[2024-07-23 23:15] LABS: Bedside Glucose 267 mg/dL (74-106)
[2024-07-24 02:36] VITALS: BP 152/85; PULSE 95; RESP 18; TEMP 36.6; O2SAT 99
[2024-07-24] MEDS: Vancomycin HCl 2,000 MG in 0.9% Normal Saline (500mL Bag) 500 ML 250 MG IV (05:53)
[2024-07-24] MEDS: Piperacil/Tazobactam 3.375 GM in 0.9% Normal Saline (50mL MB+) 50 ML IV ×2 (05:57→13:49)
[2024-07-24] MEDS: Insulin Lispro 100 UNIT/ML INSULN.PEN SC ×2 (06:04→11:47)
[2024-07-24 06:24] LABS: Bedside Glucose 247 mg/dL (74-106)
[2024-07-24 06:53] LABS: Absolute Lymphocyte Count 1.03 X10^3/uL (0.83-4.51); Absolute Neutrophil Count 11.2 X10^3/uL (2.0-7.7); Basophil# 0.08 X10^3/uL; Basophil% 0.6 % (0-1); Eosinophil# 0.11 X10^3/uL; Eosinophils% 0.8 % (0-5); Hematocrit 32.1 % (40-54); Hemoglobin 10.7 g/dL (13.0-16.5); Lymphocyte # 1.03 X10^3/ul (0.83-4.51); Lymphocyte % 7.6 % (19-41); Mean Corp Hgb Conc 33.3 g/dL (32-36); Mean Corpuscular Hgb 29.2 pg (27.0-32.0); Mean Corpuscular Volume 87.5 fL (80-94); Mean Platelet Vol. 10.3 fl (6.2-12.0); Monocyte# 0.83 X10^3/uL; Monocyte% 6.2 % (0-10); NRBC Flagged by Analyzer 0 % (0-5); Neutrophil # 11.16 X10^3/uL (2.7-7.7); Neutrophil % 82.9 % (47-70); Platelet Count 524 K/mm3 (150-450); RBC Distribution Width CV 13.2 % (11.6-14.6); RBC Distribution Width SD 42.3 fl (35.1-43.9); Red Blood Count 3.67 M/mm3 (4.6-6.2); White Blood Count 13.5 K/mm3 (4.4-11.0)
[2024-07-24 07:39] LABS: Anion Gap 5 (5-15); BUN 9 mg/dL (7-18); BUN/Creat Ratio 13.2 RATIO (10-20); Calcium,Total 7.3 mg/dL (8.5-10.1); Chloride 103 mmol/L (98-107); Creatinine, Serum 0.68 mg/dL (0.70-1.30); EST Glomerular Filtration Rate 123 mL/min (>60); Est Glom Filt Rate - Afr Amer 149 mL/min (>60); Estimated Creatinine Clearance 89.49 ml/min; Glucose 235 mg/dL (74-106); Potassium 3.2 mmol/L (3.5-5.1); Sodium Level 137 mmol/L (136-145)
[2024-07-24 08:30] VITALS: O2SAT 93
--- NOTE | 2024-07-24 08:44 | PN.HOSP_ITS ---
Reason for Visit Reason for Visit: Diagnoses Obesity, class 1 (07/13/24) Acidosis, unspecified (07/13/24) Hypokalemia (07/13/24) Alcohol abuse, uncomplicated (07/13/24) Hypotension, unspecified (07/13/24) Alcohol induced acute pancreatitis without necrosis or infection (07/13/24) Subjective Subjective Still with abdominal pain. Not sleeping well. Wants something for pain (hydromorphone was already ordered) Objective Data Objective Data Vital Signs: Vital Signs Temp Pulse Resp BP Pulse Ox O2 Del Method O2 Flow Rate 36.6 C 95 18 152/85 H 93 Nasal Cannula 2 07/24/24 02:36 07/24/24 02:36 07/24/24 02:36 07/24/24 02:36 07/24/24 08:30 07/24/24 08:30 07/24/24 08:30 FiO2 30 07/19/24 22:21 Oxygen Flow Rate (L/min) 2 Oxygen Delivery Method Nasal Cannula Weight: 81.9 kg Body Mass Index (BMI) 30.0 Intake & Output: Intake and Output for Last 24 Hours 07/22/24 07/23/24 07/24/24 23:59 23:59 23:59 Intake Total 1920 / 1920 2530 / 2530 50 / 50 Output Total 200 / 200 550 / 550 Balance 1720 / 1720 1979 / 1979 50 / 50 Lab / Micro Data 07/24/24 06:10 07/24/24 06:10 Labs: Laboratory Results - last 24 hr 07/23/24 03:58: Hemoglobin A1c 7.9 H 07/23/24 11:20: POC Glucose 312 H 07/23/24 14:35: Hemoglobin A1c 7.9 H 07/23/24 16:17: POC Glucose 347 H 07/23/24 22:40: POC Glucose 267 H 07/24/24 06:04: POC Glucose 247 H 07/24/24 06:10: WBC 13.5 H, RBC 3.67 L, Hgb 10.7 L, Hct 32.1 L, MCV 87.5, MCH 29.2, MCHC 33.3, RDW Std Deviation 42.3, RDW Coeff of Vic 13.2, Plt Count 524 H, MPV 10.3, Immature Gran % (Auto) 1.900 H, Neut % (Auto) 82.9 H, Lymph % (Auto) 7.6 L, [place] % (Auto) 6.2, Eos % (Auto) 0.8, Baso % (Auto) 0.6, Absolute Neuts (auto) 11.2 H, Absolute Lymphs (auto) 1.03, Nucleated RBC % 0, Sodium 137, P otassium 3.2 L, Chloride 103, Carbon Dioxide 29.0, Anion Gap 5, BUN 9, C reatinine 0.68 L, Estim Creat Clear Calc 89.49, Est GFR (MDRD) Af Amer 149, Est GFR (MDRD) Non-Af 123, BUN/Creatinine Ratio 13.2, Glucose 235 H, Calcium 7.3 L Micro: Microbiology 07/20/24 15:45 Urine, Clean Catch Legionella Antigen - Final 07/20/24 15:45 Urine, Clean Catch Streptococcus pneumoniae Antigen (M - Final Radiography Diagnostic Testing: Radiology Impression KUB X-Ray 07/23/24 17:00 IMPRESSION: No definite acute or significant abnormality seen. Electronically Signed: Clifton Valerio MD at 18:18 EST , Physical Exam Const alert and no apparent distress Constitutional Narrative: appears well. HEENT head/scalp atraumatic and moist oral mucous membranes Resp normal respiratory effort and no retractions Resp Narrative: crackles in bases. improved aeration overall. Cardio regular rate and regular rhythm GI GI Narrative: distended. tender. Extremity normal to inspection Neuro Sensorium / Orientation: awake and alert Psych affect normal Assessment & Plan Assessment/Plan (1) Acute alcoholic pancreatitis: QUALIFIERS: Acute pancreatitis complication: no infection or necrosis Qualified Code(s): K85.20 - Alcohol induced acute pancreatitis without necrosis or infection (2) Severe hypotension: (3) Hypokalemia: PLAN: Plan Acute necrotizing pancreatitis * CAT scan showed the following: Mild bilateral pleural effusions with bilateral atelectasis and pneumonia, mildly decreased from prior. Severe pancreatitis with multiple peripancreatic air-fluid collections again seen, concerning for necrotizing fluid collections and possible abscesses. Clusters of extraluminal air in the right mid and left upper abdomen again seen, likely additional collections with pneumoperitoneum and perforation not excluded. Mildly infiltrated or edematous appearance of the omentum and mesentery, which may be secondary to peritonitis or carcinomatosis. Limited evaluation on noncontrast examination. Gallbladder wall edema. * Previous CAT scan on did not comment on the necrotizing pancreatitis as well as clusters of extraluminal air. Discussed the case with Dr. Wilkinson, general surgery who verified that those findings were present on the CT image from the . Given the necrotizing pancreatitis, he is recommending transfer for better management potential intervention of his pancreas. * I reached out to [facility] and for spoke with the medical service and then to surgical service. Medical surgical service declined transfer but patient was accepted by the surgical service. * I discussed this issue with the patient directly and then again with the patient and his friends at bedside. Informed them that the initial CAT scan from the did not comment on the necrotizing pancreatitis and explained the recommendations for transfer. They expressed understanding. * Patient will be n.p.o. for now. * Continue antibiotics with pip-tazo and vancomycin. Acute alcohol withdrawal syndrome * resolved and phenobarbital discontinued * thiamine and folate Suspected Gram negative pneumonia * Improving on CAT scan. * pip/tazo and vancomycin * Ag for strep and legionella negative. Check SCx. * pulmonary toilet including vest therapy. * SCx pending. Acute HFpEF * EF 60% * wean oxygen as tolerated. Hypokalemia * 2/2 diuresis * replace DM2 * not previously diagnosed, but glucose has been elevated on BMPs * check A1c. start SSI Chronic conditions: * obesity class I: Weight loss will be recommended. * Essential hypertension; on amlodipine and lisinopril-HCTZ * Hyperlipidemia; on simvastatin - Restart simvastatin when patient is able to tolerate oral intake. * Neuropathy; on gabapentin - Resume gabapentin when patient is cleared for oral intake. * History of diverticulosis - Noted on CT this admission with no signs of diverticulitis. * GERD; on omeprazole -on PPI * OA; with history of Right TKR on prn tramadol - Noted. Hold tramadol for now. DVT prophylaxis - Lovenox 40 mg sq daily plus SCD's. Greater than 75 minutes of which greater than 50% of time was discussing with specialist, working on transfer to outside facility and discussing with the patient and his friends. Charges/Coding Visit Charges Inpatient E&M: 79676 Subs Hosp L3
[2024-07-24 09:00] VITALS: BP 120/70; PULSE 95; RESP 18; TEMP 36.6; O2SAT 96
[2024-07-24 09:11] VITALS: PULSE 97
[2024-07-24] MEDS: Thiamine Hydrochloride 100 MG Tablet PO (09:11)
[2024-07-24] MEDS: Potassium Chloride Oral Tablet 20 MEQ 40 MEQ PO (09:11)
[2024-07-24] MEDS: guaiFENesin 1,200 MG Tablet 1200 MG PO (09:11)
[2024-07-24] MEDS: Metoprolol Tartrate 25 MG Tablet PO (09:11)
[2024-07-24] MEDS: Enoxaparin 40 MG/0.4 ML Syringe SC (09:12)
[2024-07-24] MEDS: Folic Acid 1 MG Tablet PO (09:12)
[2024-07-24] MEDS: Pantoprazole Sodium 40 MG Tablet PO (09:12)
--- NOTE | 2024-07-24 09:58 | CT_ITS ---
ACR Level 3 findings have been noted. An addendum which confirms receipt of the report will follow. HISTORY: pneumonia. Abdominal pain. History of pancreatitis. TECHNIQUE: Helically acquired images were obtained of the chest, abdomen, and pelvis without contrast. 2-D reformatted images provided. A radiation dose optimization technique was used for this scan. 1236 images. COMPARISON: XR 07/23/2024, CT 07/20/2024 and 07/13/2024. FINDINGS: ----Chest: LARGE AIRWAYS: Patent. LUNGS: Bilateral atelectasis and consolidation most confluent in the lower lobes, mildly decreased. Calcified right lower lobe granuloma. PLEURA: Mild bilateral pleural effusions, also decreased. HEART AND PERICARDIUM: Heart within normal limits in size, with coronary artery calcification. No significant pericardial effusion. VESSELS: Thoracic aorta nondilated. Atherosclerosis present. MEDIASTINUM AND AHSAN: No pathologically enlarged lymph nodes. BONES: Mild degenerative change. ----Abdomen/Pelvis: BOWEL: Bowel including appendix nondilated. Colonic diverticulosis with limited evaluation for acute diverticulitis due to generalized intra-abdominal edema with infiltrated or edematous appearance of the omentum and mesentery. LIVER: Mild hepatomegaly. GALLBLADDER/BILIARY TREE: Mild gallbladder wall edema. SPLEEN: Nonenlarged. PANCREAS: Extensive peripancreatic edema with multiple air-fluid collections measuring 3.8 x 5.3 cm with mass effect in the gastric wall and 2.8 x 3.9 cm anteriorly. Clusters of extraluminal air in the left upper and right mid abdomen again seen with extensive edema and mild fluid along the anterior pararenal fascia. KIDNEYS: No nephrolithiasis or obstructing ureteral calculus. ADRENAL GLANDS: No nodules. VESSELS: No abdominal aortic aneurysm. Mild atherosclerosis. PELVIC ORGANS: Unremarkable. Mild presacral edema. ABDOMINAL WALL: Dependent subcutaneous edema. BONES: Mild degenerative change. CT/CT Chest, Abd, Pelvis WO Cont IMPRESSION: Mild bilateral pleural effusions with bilateral atelectasis and pneumonia, mildly decreased from prior. Severe pancreatitis with multiple peripancreatic air-fluid collections again seen, concerning for necrotizing fluid collections and possible abscesses. Clusters of extraluminal air in the right mid and left upper abdomen again seen, likely additional collections with pneumoperitoneum and perforation not excluded. Mildly infiltrated or edematous appearance of the omentum and mesentery, which may be secondary to peritonitis or carcinomatosis. Limited evaluation on noncontrast examination. Gallbladder wall edema. Electronically Signed: Jacqui Melendez MD at 12:02 EST ,
[2024-07-24 12:07] LABS: Bedside Glucose 270 mg/dL (74-106)
[2024-07-24 12:24] VITALS: BP 127/78; PULSE 87; RESP 18; TEMP 37.1; O2SAT 97
[2024-07-24 15:15] VITALS: BP 132/73; PULSE 107; RESP 16; TEMP 36.9; O2SAT 95
[2024-07-24] MEDS: Acetaminophen 500 MG Tablet PO (15:19)
[2024-07-24] MEDS: oxyCODONE 5 MG Tablet PO (15:19)
--- NOTE | 2024-07-24 16:24 | DS.PCM_ITS ---
Providers Date of Admission: 07/13/24 Primary Care Physician: Dr. Marcell Juan MD Reason For Visit: abd pain Diagnosis Discharge Diagnosis (1) Acute alcoholic pancreatitis: Status: Acute Code(s): K85.20 - Alcohol induced acute pancreatitis without necrosis or infection Qualifiers: Acute pancreatitis complication: no infection or necrosis Qualified Code(s): K85.20 - Alcohol induced acute pancreatitis without necrosis or infection (2) Severe hypotension: Status: Acute Code(s): I95.9 - Hypotension, unspecified (3) Hypokalemia: Status: Acute Code(s): E87.6 - Hypokalemia Plan Acute necrotizing pancreatitis * CAT scan showed the following: Mild bilateral pleural effusions with bilateral atelectasis and pneumonia, mildly decreased from prior. Severe pancreatitis with multiple peripancreatic air-fluid collections again seen, concerning for necrotizing fluid collections and possible abscesses. Clusters of extraluminal air in the right mid and left upper abdomen again seen, likely additional collections with pneumoperitoneum and perforation not excluded. Mildly infiltrated or edematous appearance of the omentum and mesentery, which may be secondary to peritonitis or carcinomatosis. Limited evaluation on noncontrast examination. Gallbladder wall edema. * Previous CAT scan on did not comment on the necrotizing pancreatitis as well as clusters of extraluminal air. Discussed the case with Dr. Wilkinson, general surgery who verified that those findings were present on the CT image from the . Given the necrotizing pancreatitis, he is recommending transfer for better management potential intervention of his pancreas. * I reached out to [facility] and for spoke with the medical service and then to surgical service. Medical surgical service declined transfer but patient was accepted by the surgical service. * I discussed this issue with the patient directly and then again with the patient and his friends at bedside. Informed them that the initial CAT scan from the did not comment on the necrotizing pancreatitis and explained the recommendations for transfer. They expressed understanding. * Patient will be n.p.o. for now. * Continue antibiotics with pip-tazo and vancomycin. Acute alcohol withdrawal syndrome * resolved and phenobarbital discontinued * thiamine and folate Suspected Gram negative pneumonia * Improving on CAT scan. * pip/tazo and vancomycin * Ag for strep and legionella negative. Check SCx. * pulmonary toilet including vest therapy. * SCx pending. Acute HFpEF * EF 60% * wean oxygen as tolerated. Hypokalemia * 2/2 diuresis * replace DM2 * not previously diagnosed, but glucose has been elevated on BMPs * check A1c. start SSI Chronic conditions: * obesity class I: Weight loss will be recommended. * Essential hypertension; on amlodipine and lisinopril-HCTZ * Hyperlipidemia; on simvastatin - Restart simvastatin when patient is able to tolerate oral intake. * Neuropathy; on gabapentin - Resume gabapentin when patient is cleared for oral intake. * History of diverticulosis - Noted on CT this admission with no signs of diverticulitis. * GERD; on omeprazole -on PPI * OA; with history of Right TKR on prn tramadol - Noted. Hold tramadol for now. DVT prophylaxis - Lovenox 40 mg sq daily plus SCD's. Patient to be discharged today to [facility]. Medications at Discharge Home Medications amlodipine 5 mg tablet 5 mg PO DAILY 07/07/15 aspirin 81 mg capsule 81 mg PO DAILY 05/04/24 lisinopril 10 mg-hydrochlorothiazide 12.5 mg tablet 1 tab PO DAILY 05/04/24 omeprazole 20 mg capsule,delayed release 20 mg PO DAILY 05/04/24 simvastatin 40 mg tablet 40 mg PO QHS 05/04/24 tramadol 50 mg tablet 50 mg PO TID PRN PRN pain 05/04/24 gabapentin 100 mg capsule 100 mg PO TID 07/13/24 Hospital Course Summary of Care Provided Minutes Spent on Discharge: 75 Weight / BMI Weight Weight: 81.9 kg Body Mass Index (BMI) 30.0 ABG / Lab / Microbiology Data 07/24/24 06:10 07/24/24 06:10 Laboratory: Laboratory Results - last 24 hr 07/23/24 16:17: POC Glucose 347 H 07/23/24 22:40: POC Glucose 267 H 07/24/24 06:04: POC Glucose 247 H 07/24/24 06:10: WBC 13.5 H, RBC 3.67 L, Hgb 10.7 L, Hct 32.1 L, MCV 87.5, MCH 29.2, MCHC 33.3, RDW Std Deviation 42.3, RDW Coeff of Vic 13.2, Plt Count 524 H, MPV 10.3, Immature Gran % (Auto) 1.900 H, Neut % (Auto) 82.9 H, Lymph % (Auto) 7.6 L, [place] % (Auto) 6.2, Eos % (Auto) 0.8, Baso % (Auto) 0.6, Absolute Neuts (auto) 11.2 H, Absolute Lymphs (auto) 1.03, Nucleated RBC % 0, Sodium 137, P otassium 3.2 L, Chloride 103, Carbon Dioxide 29.0, Anion Gap 5, BUN 9, C reatinine 0.68 L, Estim Creat Clear Calc 89.49, Est GFR (MDRD) Af Amer 149, Est GFR (MDRD) Non-Af 123, BUN/Creatinine Ratio 13.2, Glucose 235 H, Calcium 7.3 L 07/24/24 11:46: POC Glucose 270 H Microbiology: Microbiology 07/20/24 15:45 Urine, Clean Catch Legionella Antigen - Final 07/20/24 15:45 Urine, Clean Catch Streptococcus pneumoniae Antigen (M - Final Radiography Diagnostic Testing: Radiology Impression KUB X-Ray 07/23/24 17:00 IMPRESSION: No definite acute or significant abnormality seen. Electronically Signed: Clifton Valerio MD at 18:18 EST , Chest/Abdomen/Pelvis CT 07/24/24 09:58 IMPRESSION: Mild bilateral pleural effusions with bilateral atelectasis and pneumonia, mildly decreased from prior. Severe pancreatitis with multiple peripancreatic air-fluid collections again seen, concerning for necrotizing fluid collections and possible abscesses. Clusters of extraluminal air in the right mid and left upper abdomen again seen, likely additional collections with pneumoperitoneum and perforation not excluded. Mildly infiltrated or edematous appearance of the omentum and mesentery, which may be secondary to peritonitis or carcinomatosis. Limited evaluation on noncontrast examination. Gallbladder wall edema. Electronically Signed: Jacqui Melendez MD at 12:02 EST , ADDENDUM: 07/24/24 1213 IMPRESSION: Mild bilateral pleural effusions with bilateral atelectasis and pneumonia, mildly decreased from prior. Severe pancreatitis with multiple peripancreatic air-fluid collections again seen, concerning for necrotizing fluid collections and possible abscesses. Clusters of extraluminal air in the right mid and left upper abdomen again seen, likely additional collections with pneumoperitoneum and perforation not excluded. Mildly infiltrated or edematous appearance of the omentum and mesentery, which may be secondary to peritonitis or carcinomatosis. Limited evaluation on noncontrast examination. Gallbladder wall edema. N.B. : Latia beckwith RN, confirmed on 07/24/2024 12:06:17 (ET) that the healthcare facility has received the radiology report. Electronically Signed: Jacqui Melendez MD at 12:02 EST , D/C Instructions DC O2, CPAP, BIPAP Needs RN Home O2 Qualification: Home O2 Qualification: Is the patient on home oxygen No 07/22/24 04:43 Home O2 Qualification: AT REST 1- Pulse Ox at rest 89 07/22/24 04:43 2- Pulse Ox at rest 92 07/20/24 11:54 2- Oxygen Flow Rate at rest 2 07/20/24 11:54 Home O2 Qualification: WITH AMBULATION 1- Pulse Ox with ambulation 88 07/22/24 04:43 1- Oxygen Flow Rate with 0 07/22/24 04:43 ambulation 2- Pulse Ox with ambulation 95 07/22/24 04:43 2- Oxygen Flow Rate with 2 07/22/24 04:43 ambulation PSN CPAP & BiPAP: BiPAP & CPAP Settings per PSN Mode BiPAP 07/24/24 08:29 Bipap Delivery Device Face Mask 07/19/24 22:21 BiPAP Inspiratory Pressure 10 07/19/24 22:21 BiPAP Expiratory Pressure 5 07/19/24 22:21 BiPAP Rate 12 07/19/24 22:21 Fraction of Inspired Oxygen ( 30 07/19/24 22:21 FIO2) Additional Home O2 Discharge instructions: No DC home with Oxygen: No Meaningful Use Info Meaningful Use Meaningful Use Diagnoses (Choose all that apply): None applicable Ischemic Stroke Statin Dosing Therapy Reference: STATIN DOSE THERAPY REFERENCE: * Patients > 75 years receive moderate or high dose statin therapy. * Patients 75 years or YOUNGER should receive HIGH intensity statin dose unless contraindicated. You will be required to document reason for non-treatment if statin daily dose does not meet guidelines. HIGH DOSE STATIN THERAPY DAILY Atorvastatin > than or = to 40 mg Rosuvastatin > than or = to 20 mg Amlodipine + Atorvastatin > than or = to 2.5/40 mg Ezetimibe + Simvastatin 10/80 mg Simvastatin 80mg Discharge Plan Admission Admit Date/Time: 07/13/24 23:50 Primary Reason for Your Visit: necrotzing pancreatiis Attending Provider: Renato Jeff Primary Care Provider: Marcell Juan Consulting Providers: Angelo Nelson; Walter Bazzi Discharge Orders/Prescriptions Prescriptions: No Action amlodipine 5 MG tablet 5 mg PO DAILY tramadol 50 mg tablet 50 mg PO TID PRN PRN (Reason: pain) simvastatin 40 mg tablet 40 mg PO QHS omeprazole 20 mg capsule,delayed release(DR/EC) 20 mg PO DAILY lisinopril-hydrochlorothiazide 10-12.5 mg tablet 1 tab PO DAILY aspirin 81 mg capsule 81 mg PO DAILY gabapentin 100 mg capsule 100 mg PO TID Referrals / Follow Up: Marcell Juan MD [Primary Care Provider] - Disposition Disposition (needs filled in before D/C Order can be placed): Acute Care Hospital Charges/Coding Visit Charges Inpatient E&M: 20952 Disch Hosp >30min
[2024-07-24 16:52] LABS: Bedside Glucose 205 mg/dL (74-106)
[2024-07-24 17:04] LABS: Vancomycin, Trough Level 21.9 ug/mL (5.0-15.0)
== END 2024-07-24 18:06 | disposition short-term general hospital (02) | DRG 438 ==
LOC: ED 22:41 → ICU 23:41 → MS3 07-16 11:22
PROVIDERS: Internal Medicine; Admitting Provider Internal Medicine; Emergency Provider Emergency Medicine; PCP Family Medicine
DX: K85.21 Alcohol induced acute pancreatitis with uninfected necrosis (principal); I50.31 Acute diastolic (congestive) heart failure; J15.69 Pneumonia due to other Gram-negative bacteria; E87.20 Acidosis, unspecified; F10.139 Alcohol abuse with withdrawal, unspecified; I11.0 Hypertensive heart disease with heart failure; K70.10 Alcoholic hepatitis without ascites; E11.65 Type 2 diabetes mellitus with hyperglycemia; Z68.32 Body mass index [BMI] 32.0-32.9, adult; E11.40 Type 2 diabetes mellitus with diabetic neuropathy, unspecified; E88.09 Other disorders of plasma-protein metabolism, not elsewhere classified; I95.9 Hypotension, unspecified; K21.9 Gastro-esophageal reflux disease without esophagitis; E87.6 Hypokalemia; E78.00 Pure hypercholesterolemia, unspecified; K52.9 Noninfective gastroenteritis and colitis, unspecified; G89.29 Other chronic pain; R09.02 Hypoxemia; Z79.82 Long term (current) use of aspirin; Z79.899 Other long term (current) drug therapy; Z91.041 Radiographic dye allergy status; E66.811 Obesity, class 1; Z68.31 Body mass index [BMI] 31.0-31.9, adult
CPT/HCPCS: 36415; 71046; 71250; 74018; 74176; 80048; 80053; 80061; 80076; 80202; 81001; 82962; 82977; 83036; 83605; 83690; 83735; 84100; 84443; 85025; 85610; 85730; 87449; 93005; 93306; 94002; 94003; 94640; 94667; 94668; 94762; 97110; 97116; 97162; 97166; 97530; 97535; 97803; 99285; J7040; Q9957; A4216; J1940; J2405